=== PATIENT | male | born 1940 | race Caucasian/White ===

== ENCOUNTER 2016-12-17 14:41 | Outpatient (CLI) | payer MEDICARE | END 2016-12-17 14:42 | disposition home or self-care (01) | DX: Z01.818 Encounter for other preprocedural examination (principal); K40.90 Unilateral inguinal hernia, without obstruction or gangrene, not specified as recurrent; R91.8 Other nonspecific abnormal finding of lung field ==

== ENCOUNTER 2016-12-21 07:59 | Day surgery (SDC) | payer MEDICARE ==
[2016-12-21] MEDS ORDERED: LACTATED RINGERS 1,000 ML IV ONE ×5 (09:01→12:25)
[2016-12-21] MEDS ORDERED: DEXAMETHASONE 4 MG/ML VIAL IVP ONE (09:20)
[2016-12-21] MEDS ORDERED: GLYCOPYRROLATE 1 MG/5 ML VIAL IVP ONE (09:20)
[2016-12-21] MEDS ORDERED: ROCURONIUM 50 MG/5 ML VIAL IVP ONE (09:20)
[2016-12-21] MEDS ORDERED: ceFAZolin 1 GM VIAL IV ONE (09:20)
[2016-12-21] MEDS ORDERED: LIDOCAINE-MPF 2% 5 ML VIAL IM ONE (09:20)
[2016-12-21] MEDS ORDERED: ACETAMINOPHEN 1,000 MG/100 ML VIAL IV ONE (09:20)
[2016-12-21] MEDS ORDERED: fentaNYL 100 MCG/2 ML VIAL IVP ONE (09:20)
[2016-12-21] MEDS ORDERED: ONDANSETRON 4 MG/2 ML VIAL IVP ONE (09:20)
[2016-12-21] MEDS ORDERED: MIDAZOLAM 2 MG/2 ML VIAL IVP ONE (09:20)
[2016-12-21] MEDS ORDERED: PROPOFOL 200 MG/20 ML VIAL IVP ONE (09:20)
[2016-12-21] MEDS ORDERED: NEOSTIGMINE 1 MG/1 ML 10 ML MDV IVP ONE (09:20)
[2016-12-21] MEDS ORDERED: SUCCINYLCHOLINE 200 MG/10 ML VIAL IVP ONE (09:20)
[2016-12-21] MEDS ORDERED: BUPIVACAINE 0.5%-EPI 1:200000 PF 30 ML VIAL SUBQ ONE ×2 (09:28→11:00)
--- NOTE | 2016-12-21 11:43 | OPERATIVE REPORT ---
DATE OF SURGERY: 12/21/2016 00:00:00 SURGEON: Tena Esposito MD ANESTHESIA: General. NAME OF PROCEDURE: Left inguinal hernia repair with mesh. PREOPERATIVE DIAGNOSIS: Incarcerated left inguinal hernia. POSTOPERATIVE DIAGNOSIS: Incarcerated left inguinal hernia. FINDINGS: After obtaining informed consent from the patient, he was brought into the operating room and positioned on the operating table in the supine position, taking note of pressure points. He was intubated by Anesthesia. He was then prepped and draped in the usual sterile fashion. Perioperative antibiotics were administered, SCD boots were applied. A time-out was then taken according to protocol. An incision was made in the inguinal crease approximately 4 cm in length. This was deepened down to subcutaneous tissue. Ana Rosa fascia was divided. The external oblique aponeurosis was encountered. This was opened along the length of fibers using a #15 blade, followed by Metzenbaum scissors towards the external ring. The external ring was opened and the oblique fibers were then opened towards the ASIS exposing the inguinal floor. The ilioinguinal nerve was identified and was protected by dissecting it out of the cord structures. The cord structures were then palpated and dissected off of the underlying pelvic floor structures encircling the cord structures with a Dodie at the level of the pubic bone. Dissection in the cord structures was performed. The cord structures were from the inguinal floor. The hernia sac was identified in the indirect space. It was difficult to dissect the hernia sac off of the cord structures as these were very adherent. The sac eventually was opened and its contents inspected. There was noted to be a loop of what appeared to be small bowel and mesentery stuck to the inner aspect of the hernia sac. The hernia sac was eventually dissected off of the cord structures and reduced back into the abdominal cavity. A large size Prolene mesh was then selected and inserted into the internal ring. This was sutured into place to the transversalis muscles as well as to the inguinal ligament with a #2 Prolene suture. A Prolene mesh was then utilized to close the floor defect. This was sutured in place at the pubic tubercle and to the internal oblique fibers medially, as well as to the inguinal ligament laterally. The tails were crossed to accommodate the spermatic cord and the tails were sutured together with #2 Prolene. Hemostasis was noted to be achieved , and the cavity was irrigated. The external oblique fibers were then closed protecting the underlying ilioinguinal nerve with a #2 Prolene suture in a running fashion. Again, the subcutaneous tissue was irrigated and the Ana Rosa fascia was closed with 3-0 Vicryl; 30 mL of local anesthetic was infiltrated. The skin was then closed with 4-0 Monocryl. BLOOD LOSS: 5 mL. COMPLICATIONS: None. JOB #: [id number] [facility] JOB #:[id number] [facility]
[2016-12-21] MEDS ORDERED: oxyCOD/ACETAMIN 5 MG/325 MG TABLET PO ONE (12:20)
[2016-12-21 15:21] VITALS: BP 151/81
== END 2016-12-21 08:00 | disposition home or self-care (01) ==
LOC: SDS 07:59
PROVIDERS: ATTEND Surgery
PROC: 0YU60JZ Supplement Left Inguinal Region with Synthetic Substitute, Open Approach (ICD-10-PCS; principal; 2016-12-21 09:15)
DX: K40.30 Unilateral inguinal hernia, with obstruction, without gangrene, not specified as recurrent (principal); E84.9 Cystic fibrosis, unspecified; J44.9 Chronic obstructive pulmonary disease, unspecified; I10 Essential (primary) hypertension; Z79.82 Long term (current) use of aspirin; Z82.49 Family history of ischemic heart disease and other diseases of the circulatory system; Z83.3 Family history of diabetes mellitus; Z87.891 Personal history of nicotine dependence
CPT/HCPCS: 49507; A9270; C1781; J0131; J7120

== ENCOUNTER 2017-01-15 10:46 | Outpatient (CLI) | payer MEDICARE ==
[2017-01-15 11:07] LABS: BILIRUBIN,URINE NEGATIVE (NEGATIVE)
== END 2017-01-15 10:47 | disposition home or self-care (01) ==
LOC: LAB 10:46
PROVIDERS: ATTEND Surgery
DX: K40.90 Unilateral inguinal hernia, without obstruction or gangrene, not specified as recurrent (principal)
CPT/HCPCS: 81003

== ENCOUNTER 2017-08-21 11:05 | Outpatient (CLI) | payer MEDICARE ==
[2017-08-21 11:34] LABS: BASOPHILS # (AUTO) 0.1 10^3/uL (0.0-0.1); BASOPHILS % (AUTO) 0.6 %; EOSINOPHILS # (AUTO) 0.2 10^3/uL (0.0-0.7); EOSINOPHILS % (AUTO) 2.8 %; HGB - HEMOGLOBIN 14.3 g/dL (14.0-18.0); LYMPHOCYTES # (AUTO) 1.1 10^3/uL (1.5-3.5); MEAN CORPUSCULAR HEMOGLOBIN 33.1 pg (27.0-31.0); MEAN CORPUSCULAR HGB CONC 33.9 g/dL (32.0-36.0); MEAN CORPUSCULAR VOLUME 97.5 fL (80.0-94.0); MEAN PLATELET VOLUME 8.4 fL (7.4-11.4); MONOCYTES # (AUTO) 0.6 10^3/uL (0.0-1.0); MONOCYTES % (AUTO) 6.7 %; NEUTROPHILS # (AUTO) 6.6 10^3/uL (1.5-6.6); NEUTROPHILS % (AUTO) 76.9 %; PLT - PLATELET COUNT 176 10^3/uL (130-450); RED BLOOD COUNT 4.31 10^6/uL (4.70-6.10); RED CELL DISTRIBUTION WIDTH 14.1 % (12.0-15.0); WHITE BLOOD COUNT 8.6 x10^3/uL (4.8-10.8)
[2017-08-21 11:54] LABS: ALBUMIN 4.1 g/dL (3.2-5.5); ALBUMIN/GLOBULIN RATIO 1.4 (1.0-2.2); BILIRUBIN,TOTAL 0.5 mg/dL (0.2-1.0); CALCIUM 9.2 mg/dL (8.5-10.3); CREATININE 0.9 mg/dL (0.6-1.2)
== END 2017-08-21 11:06 | disposition home or self-care (01) ==
LOC: LAB 11:05
PROVIDERS: ATTEND Family Medicine
DX: K11.20 Sialoadenitis, unspecified (principal)
CPT/HCPCS: 36415; 80053; 85025; 86735

== ENCOUNTER 2017-12-01 10:38 | Inpatient (IN) | payer MEDICARE ==
--- NOTE | 2017-12-01 11:03 | ED Physician Documentation ---
History of Present Illness - Stated complaint Stated Complaint: MEMORY LOSS/CONFUSION - Chief complaint Chief Complaint: Neuro - Additonal information Additional information: hx from pt 77 male on eliquis and has a PPM last night approx 1030 PM he noticed he was dizzy and off balance and had trouble focusing his vision to read went to bed and this AM when he awoke the sx were still there and he was also having trouble with his memory no focal numbness or weakness no speech abn no loss of vision or hearing has a PÉREZ to the top of his head which is mild no fall otherwise well recently - no fever cough NVD etc Review of Systems Constitutional: denies: Fever, Chills Cardiac: denies: Chest pain / pressure Respiratory: denies: Dyspnea GI: denies: Abdominal Pain, Nausea, Vomiting Neurologic: reports: Headache, Other (off balance and vision abn and memory loss ). denies: Focal weakness, Numbness, Head injury Endocrine: reports: Easy bruising / bleeding (eliquis) Immunocompromised: denies: Immunocompromised PD PAST MEDICAL HISTORY - Past Medical History Cardiovascular: Hypertension, Arrhythmia Respiratory: None Endocrine/Autoimmune: None GI: GERD, Colon polyps : None HEENT: Chronic vision loss, Dental implants Psych: Depression Musculoskeletal: None Derm: None - Past Surgical History General: EGD, Appendectomy, Colonoscopy /VICE PRESIDENT PLANNING: Tubal ligation, Hysterectomy, Oophrectomy Cardiovascular: Cardiac catheterization, Other HEENT: Tonsil/Adenoidectomy - Present Medications Home Medications: Ambulatory Orders Medication Instructions Recorded Confirmed Aspirin 81 mg PO DAILY 01/10/13 12/01/17 Tamsulosin HCl [Flomax] 0.4 mg PO DAILY 12/01/17 12/01/17 - Allergies Allergies/Adverse Reactions: Allergies Allergy/AdvReac Type Severity Reaction Status Date / Time lisinopril AdvReac Cough Verified 12/01/17 17:17 losartan potassium * AdvReac Bradycardia Verified 12/01/17 17:17 [From Jose Albertoar] PD ED PE NORMAL - Vitals Vital signs reviewed: Yes - General General: Alert and oriented X 3 - HEENT HEENT: PERRL, EOMI, Other (nl visual salazar) - Neck Neck: Supple, no meningeal sign - Cardiac Cardiac: RRR - Respiratory Respiratory: Clear bilaterally - Abdomen Abdomen: Soft, Non tender - Derm Derm: Normal color - Neuro Neuro: Alert and oriented X 3, 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, No motor deficit, No sensory deficit, Normal speech, Other (NIHSS zero) Eye Opening: Spontaneous Motor: Obeys Commands Verbal: Oriented GCS Score: 15 Results - Vitals Vitals: Vital Signs - 24 hr 12/01/17 12/01/17 12/01/17 10:41 12:56 14:59 Temperature 36.1 C L Heart Rate 78 66 63 Respiratory 19 18 13 Rate Blood Pressure 182/89 H 128/81 H 150/95 H O2 Saturation 97 95 96 12/01/17 16:20 Temperature Heart Rate 64 Respiratory 22 Rate Blood Pressure 121/75 O2 Saturation 95 Oxygen O2 Source Room air - EKG (time done) 1118 Other comments: Other comments (paced at 60) - Labs Labs: Laboratory Tests 12/01/17 12/01/17 12/01/17 10:48 10:48 10:48 WBC 6.2 RBC 4.33 L Hgb 14.6 Hct 43.0 MCV 99.3 H MCH 33.7 H MCHC 33.9 RDW 14.1 Plt Count 178 MPV 8.6 Neut # 3.8 Lymph # 1.4 L Bureau # 0.8 Eos # 0.2 Baso # 0.0 Absolute Nucleated RBC 0.00 Nucleated RBC % 0.0 PT 13.7 H INR 1.2 APTT 33.7 H Sodium 137 Potassium 3.9 Chloride 104 Carbon Dioxide 27 Anion Gap 6.0 BUN 15 Creatinine 1.0 Estimated GFR (MDRD) 73 L Glucose 117 H POC Whole Bld Glucose Calcium 9.0 Urine Color Urine Clarity Urine pH Ur Specific Cranks Urine Protein Urine Glucose (UA) Urine Ketones Urine Occult Blood Urine Nitrite Urine Bilirubin Urine Urobilinogen Ur Leukocyte Esterase Ur Microscopic Review Urine Culture Comments 12/01/17 12/01/17 11:19 12:11 WBC RBC Hgb Hct MCV MCH MCHC RDW Plt Count MPV Neut # Lymph # Bureau # Eos # Baso # Absolute Nucleated RBC Nucleated RBC % PT INR APTT Sodium Potassium Chloride Carbon Dioxide Anion Gap BUN Creatinine Estimated GFR (MDRD) Glucose POC Whole Bld Glucose 154 H Calcium Urine Color YELLOW Urine Clarity CLEAR Urine pH 6.5 Ur Specific Cranks <=1.005 Urine Protein NEGATIVE Urine Glucose (UA) NEGATIVE Urine Ketones NEGATIVE Urine Occult Blood NEGATIVE Urine Nitrite NEGATIVE Urine Bilirubin NEGATIVE Urine Urobilinogen 0.2 (NORMAL) Ur Leukocyte Esterase NEGATIVE Ur Microscopic Review NOT INDICATED Urine Culture Comments NOT INDICATED - Rads (name of study) CTH Radiology: See rad report (no acute) CTA brain Radiology: See rad report (verbal from tele rad : multiple areas of high grade stenosis L MEAT TE[employer] LEAD c.w atherosclerotic dz or vasculiti, no single occlusion, no iscmeia ot brain tissue appreciated on non con scan) CTA neck Radiology: See rad report (large thyroid mass on R displacing but not compressing the trachea (pt told and advised to fup PMD for sono and perhaps biopsy and surgical referral), mild atherosclerosis R and L carotids, dominant R vertebral mild atherosclerosis, congenitally small L vertebral) PD MEDICAL DECISION MAKING - ED course ED course: sx since yesterday and on eliquis so not a TPA candidate CTH neg for acute process nl labs cannot have MRI 2/2 PPM will d/w neuro plan to admit for echo CTA serial neuro exams etc d/w neuro Dr Brito who suggests CTA in ED to determine if there is a thrombus amenable to IR got angios and then d/w Dr Brito again - she advises that the MEAT TEAM LEAD findings are not amenable to intervention via IR etc so tx will be medical - she rec hold eliquis for 2 days because if pt has a large area of ischemia he could develop bleeding, echo, serial neuro exams, rpt CTH tomorrow evening - her number for further rec is d/w Dr Miles who admit pt - inpt as needed CT tomorrow evening per neuro rec presumptive dx is CVA but will need rpt imaging to confirm - Departure - Departure Disposition: 66 [facility] DC/Xfer Clinical Impression: Abnormal CT scan, Dizziness, Vision disturbance, Confusion Cerebrovascular accident (CVA) Qualifiers: CVA mechanism: stenosis Precerebral and cerebral artery: other cerebral artery Qualified Code(s): I63.59 - Cerebral infarction due to unspecified occlusion or stenosis of other cerebral artery Condition: Good Discharge Date/Time: 12/01/17 18:11
[2017-12-01 11:14] LABS: BASOPHILS % (AUTO) 0.6 %; EOSINOPHILS # (AUTO) 0.2 10^3/uL (0.0-0.7); EOSINOPHILS % (AUTO) 3.1 %; HGB - HEMOGLOBIN 14.6 g/dL (14.0-18.0); LYMPHOCYTES # (AUTO) 1.4 10^3/uL (1.5-3.5); LYMPHOCYTES % (AUTO) 23.3 %; MEAN CORPUSCULAR HEMOGLOBIN 33.7 pg (27.0-31.0); MEAN CORPUSCULAR HGB CONC 33.9 g/dL (32.0-36.0); MEAN CORPUSCULAR VOLUME 99.3 fL (80.0-94.0); MEAN PLATELET VOLUME 8.6 fL (7.4-11.4); MONOCYTES # (AUTO) 0.8 10^3/uL (0.0-1.0); MONOCYTES % (AUTO) 12.2 %; NEUTROPHILS # (AUTO) 3.8 10^3/uL (1.5-6.6); NEUTROPHILS % (AUTO) 60.8 %; PLT - PLATELET COUNT 178 10^3/uL (130-450); RED BLOOD COUNT 4.33 10^6/uL (4.70-6.10); RED CELL DISTRIBUTION WIDTH 14.1 % (12.0-15.0); WHITE BLOOD COUNT 6.2 x10^3/uL (4.8-10.8)
[2017-12-01 11:16] LABS: INR 1.2 (0.8-1.2); PT - PROTHROMBIN TIME 13.7 secs (9.9-12.6)
--- NOTE | 2017-12-01 11:20 | CT Preliminary Report ---
Exam: CT HEAD W/O STROKE PROTOCOL IMPRESSION: No acute cranial abnormality. Findings discussed immediately with Dr. Navarro by phone on 12/01/2017 11:18 AM [facility] SITE ID: [id number]
--- NOTE | 2017-12-01 11:20 | CT Report ---
EXAM: CT HEAD EXAM DATE: 12/01/2017 11:11 AM. CLINICAL HISTORY: Stroke sx, dizziness, vision changes, memory. COMPARISON: None. TECHNIQUE: Multiaxial CT images were obtained from the foramen magnum to the vertex. Reformats: Coron al. IV contrast: None. In accordance with CT protocol optimization, one or more of the following dose reduction techniques w ere utilized for this exam: automated exposure control, adjustment of mA and/or KV based on patient s ize, or use of iterative reconstructive technique. FINDINGS: Parenchyma: No intraparenchymal hemorrhage. No evidence of mass, midline shift, or CT findings of inf arction. Lewis-white differentiation is distinct. Extraaxial Spaces: Normal for age. No subdural or epidural collections identified. Ventricles: Normal in size and position. Sinuses and Orbits: Imaged paranasal sinuses, orbits, and mastoids show no significant abnormality. Bones: No evidence of fracture or calvarial defect. Other: None. IMPRESSION: No acute cranial abnormality. Findings discussed immediately with Dr. Navarro by phone on 12/01/2017 11:18 AM [facility] Referring Provider Line: [phone] SITE ID: [id number]
[2017-12-01 12:21] LABS: BILIRUBIN,URINE NEGATIVE (NEGATIVE); GLUCOSE, URINE (UA) NEGATIVE (NEGATIVE); KETONES,URINE (UA) NEGATIVE (NEGATIVE); LEUKOCYTE ESTERASE, URINE NEGATIVE (NEGATIVE); NITRITE,URINE NEGATIVE (NEGATIVE); OCCULT BLOOD,URINE NEGATIVE (NEGATIVE); PH,URINE 6.5 PH (5.0-7.5); PROTEIN,URINE NEGATIVE (NEGATIVE); UROBILINOGEN,URINE 0.2 (NORMAL) E.U./dL (NORMAL)
[2017-12-01 12:23] LABS: CLARITY,URINE CLEAR (CLEAR)
[2017-12-01] MEDS ORDERED: IOPAMIDOL-300 100 ML VIAL ONE (14:11)
[2017-12-01] MEDS ORDERED: IOPAMIDOL-300 100 ML VIAL IVP ONE ×2 (14:51→14:52)
--- NOTE | 2017-12-01 15:45 | CT Report ---
EXAM: CT ANGIOGRAM HEAD. CT SCAN OF THE HEAD WITHOUT AND WITH CONTRAST. EXAM DATE: 12/01/2017 02:54 PM CLINICAL HISTORY: Concern for cerebrovascular accident, dizziness, vision changes, memory COMPARISON: Noncontrast CT head 12/01/2017 TECHNIQUE: - CT Scan Head: Using a multidetector scanner, axial images were acquired from the foramen magnum to the skull vertex prior to and following contrast administration. - CT Angiogram: Using a multidetector scanner, high-resolution axial images were acquired from the sk ull base through vertex following rapid infusion of intravenous contrast. Reformats: Multiplanar MIP reformats were reconstructed. Nascet criteria used for stenosis measurement. IV Contrast: 80 cc Isovue-300. In accordance with CT protocol optimization, one or more of the following dose reduction techniques w ere utilized for this exam: automated exposure control, adjustment of mA and/or KV based on patient s ize, or use of iterative reconstructive technique. FINDINGS: NON-CONTRAST HEAD: Parenchyma: No intraparenchymal hemorrhage. No evidence of mass, midline shift, or CT findings of inf arction. Lewis-white differentiation is distinct. Extraaxial Spaces: Normal for age. No subdural or epidural collections identified. Ventricles: Normal in size and position. Sinuses and orbits: Imaged paranasal sinuses, orbits, and mastoids show no significant abnormality. Bones: No evidence of fracture or calvarial defect. Other: None. POST-CONTRAST HEAD: No abnormal enhancement. CT ANGIOGRAM HEAD: Mild atherosclerosis right carotid siphon, no hemodynamically significant stenosis. Mild atherosclero sis left carotid siphon, no hemodynamically significant stenosis. Moderate atherosclerosis V4 segment right vertebral artery, maximal stenosis 20-30%. The basilar arteries unremarkable. The visualized i ntracranial left vertebral artery is unremarkable. The right MCA is unremarkable. The ACAs bilaterall y are unremarkable. The left MCA is unremarkable. The posterior communicating arteries are not clearl y visualized on either side, likely hypoplastic or aplastic. The right posterior cerebral artery is u nremarkable. Multifocal high-grade, likely greater than 80% stenoses in P2, P3 segments of the left P CA. DURAL VENOUS SINUSES AND MAJOR CENTRAL VEINS: Patent. IMPRESSION: 1. No CT evidence of acute intracranial abnormality, specifically no CT evidence of acute infarct, in tracranial hemorrhage, mass effect, midline shift, or hydrocephalus. 2. No abnormal enhancement on the postcontrast CT head. 3. Multifocal high-grade, likely greater than 80% stenoses in P2, P3 segments of the left ONLINE SERVICES MANAGER. The di fferential considerations include vasculitis, extensive atherosclerosis, less likely multifocal parti al thrombotic occlusions. 4. Mild atherosclerosis right carotid siphon, no hemodynamically significant stenosis. Mild atheroscl erosis left carotid siphon, no hemodynamically significant stenosis. 5. Moderate atherosclerosis V4 segment right vertebral artery, maximal stenosis 20-30%. 6. CTA of the neck is dictated separately. CRITICAL RESULT: The findings were discussed with Dr. Navarro on 12/01/2017 15:42 [facility] The above findings were discussed with ED Physician by Dr. Shira Savage at 15:44 hrs on 12/01/17. Referring Provider Line: [phone] SITE ID: [id number]
--- NOTE | 2017-12-01 16:13 | CT Report ---
EXAM: CT ANGIOGRAM NECK EXAM DATE: 12/01/2017 02:54 PM. CLINICAL HISTORY: CVA sx cannot MRI 2/2 PPM. COMPARISON: None. TECHNIQUE: Routine axial helical imaging was performed from the skull base through the aortic arch. R econstructions: Routine multiplanar 3D MIP reconstructions. IV Contrast: Yes. 80 cc Isovue 300 Evalua tion of arterial stenosis is based on a NASCET method of measurement. In accordance with CT protocol optimization, one or more of the following dose reduction techniques w ere utilized for this exam: automated exposure control, adjustment of mA and/or KV based on patient s ize, or use of iterative reconstructive technique. FINDINGS: Right Carotid: The large right thyroid lobe mass displaces the right common carotid artery to the rig ht, however with no significant narrowing (for example series 2 image 215). Mild atherosclerosis righ t carotid bifurcation and right carotid bulb, no hemodynamically significant stenosis. The distal cer vical right internal carotid artery is tortuous but patent. The common carotid, internal carotid, and external carotid arteries are widely patent. No evidence of dissection. Left Carotid: Common origin of the right brachiocephalic artery and left common carotid artery (bovin e arch) Mild atherosclerosis left carotid bifurcation and left carotid bulb, no hemodynamically signi ficant stenosis. Tortuosity of the distal cervical left internal carotid artery, no hemodynamically s ignificant stenosis. The common carotid, internal carotid, and external carotid arteries are widely p atent. No evidence of dissection. Vertebrals: The right vertebral artery is dominant. Mild atherosclerosis right vertebral artery origi n, maximal stenosis 30-40%. The left vertebral artery is small throughout its entire course, likely c ongenital, with origin directly from the aorta. The intracranial portions of the vertebral arteries a nd the basilar artery are dictated with the CTA of the head. Intracranial Circulation: Concurrently obtained CTA of the head is dictated separately. Other: The visualized lung apices demonstrate mild centrilobular and paraseptal emphysema but are oth erwise unremarkable. Moderate multilevel degenerative spondylosis of the visualized spine, no acute f racture or malalignment. Markedly enlarged right thyroid lobe with a large hypodense lesion with a ce ntral calcification, measuring 4.8 x 4.1 cm in maximal transverse dimensions (series 2 image 193). Th is large right thyroid lesion exerts mass effect on the trachea which is shifted to the left, however without significant luminal narrowing. The visualized soft tissues of the neck are otherwise unremar kable. IMPRESSION: 1. Concurrently obtained CTA of the head is dictated separately. 2. The large right thyroid lobe mass displaces the right common carotid artery to the right, however with no significant narrowing (for example series 2 image 215). 3. Mild atherosclerosis right carotid bifurcation and right carotid bulb, no hemodynamically signific ant stenosis. The distal cervical right internal carotid artery is tortuous but patent. 4. Common origin of the right brachiocephalic artery and left common carotid artery (bovine arch) 5. Mild atherosclerosis left carotid bifurcation and left carotid bulb, no hemodynamically significan t stenosis. Tortuosity of the distal cervical left internal carotid artery, no hemodynamically signif icant stenosis. 6. The right vertebral artery is dominant. Mild atherosclerosis right vertebral artery origin, armen l stenosis 30-40%. 7. The left vertebral artery is small throughout its entire course, likely congenital, with origin di rectly from the aorta. 8. Mild centrilobular and paraseptal emphysema 9. Markedly enlarged right thyroid lobe with a large hypodense lesion with a central calcification, m easuring 4.8 x 4.1 cm in maximal transverse dimensions (series 2 image 193). This large right thyroid lesion exerts mass effect on the trachea which is shifted to the left, however without significant l uminal narrowing. CT appearance is nonspecific. Recommend follow-up evaluation with thyroid ultrasoun d, which may be done non-emergently. [facility] Referring Provider Line: [phone] SITE ID: [id number]
[2017-12-01] MEDS ORDERED: ACETAMINOPHEN 325 MG TABLET PO PRN (17:17)
[2017-12-01] MEDS ORDERED: SODIUM CHLORIDE FLUSH 0.9% 10 ML SYRINGE IVP PRN (17:17)
[2017-12-01] MEDS ORDERED: ONDANSETRON 4 MG/2 ML VIAL IVP PRN (17:17)
[2017-12-01] MEDS ORDERED: PROCHLORPERAZINE 10 MG/2 ML VIAL IVP PRN (17:17)
[2017-12-01] MEDS ORDERED: oxyCODONE 5 MG TABLET PO PRN (17:17)
[2017-12-01] MEDS ORDERED: PROMETHAZINE 25 MG/1 ML VIAL IM PRN (17:17)
--- NOTE | 2017-12-01 18:46 | HISTORY & PHYSICAL EXAMINATION ---
Chief Complaint - Chief Complaint Chief Complaint: Memory problems History of Present Illness - Admitted From Admitted From:: Emergency department - History Obtained From Records Reviewed: Yes History obtained from: Patient Exam Limitations: At times patient was slow to answer questions - History of Present Illness HPI Comment/Other: Patient is a 77-year-old gentleman with a past medical history significant for atrial flutter status post 2 ablations just 1 month ago at [facility] currently on Eliquis for just 1 more day, history of hypertension no longer on medications and history of sick sinus syndrome status post pacemaker who presented to the emergency department with a chief complaint of memory problems. The patient states that he was in his normal state of health until last night about half an hour before he went to bed. He states that he went to get his pajamas when he noticed he was having difficulties with his balance. He states that he had to hang onto the brink to get to his pajamas and had a lot of difficulty putting on his pajamas. He states when he finally got back to the bed and sat down he began playing with his iPad. He states that when he looked at his iPad he could not clearly see the right side of the screen. He states that the right side of the skin drain was blurry. He states that he tried to move the eye pad and different positions and the right side remained blurry. He states that he thought if he just went to sleep he could sleep off the symptoms so he went to bed. He states that when he woke up this morning he noticed he was having difficulty remembering things. He states that specifically he was having difficulty remembering numbers. He states that he could not remember dates and could not remember his own phone number. He states that this concerned him as it was not getting better as the day progressed. He finally decided to come into the emergency department. He also states that he was having a headache throughout the day. Patient denies any fevers, chills, nasal congestion, sore throat, difficulty swallowing, chest pain, shortness of air, orthopnea, cough, PND, increased lower extremity swelling, abdominal pain, nausea, vomiting, diarrhea, constipation, urinary urgency, urinary frequency, dysuria, joint pain, muscle aches, joint swelling, back pain, neck stiffness, skin changes, hair loss, recent unintentional weight loss, changes in his appetite, facial droop or any focal neurologic deficits. On presentation to the emergency department the patient was afebrile, hypertensive with blood pressure of 182/89 and otherwise vital signs are within normal limits. The patient underwent routine lab work which revealed a normal CBC, normal electrolytes and a negative urine analysis. The patient underwent a CT of his head which showed no acute cranial abnormality. The patient then underwent a CT angiogram of his head and neck which showed no evidence of acute intracranial abnormality specifically acute infarct or intracranial hemorrhage or mass-effect or midline shift or hydrocephalus there was a finding however of multifocal high-grade, likely greater than 80% stenosis in P2, P3 segments of the left MINE PATROL. The differential consideration included vasculitis, extensive atherosclerosis and less likely multifocal partial thrombotic occlusions. Given these findings the emergency room physician Dr. Cota called [facility] neurology Dr. Myla Brito. Dr. Brito stated that there was no acute intervention that could be done at this time given that the posterior arteries could not be treated by intervention. She did advise that the patient be admitted to the hospital and monitored with neuro checks. She also advised that the Eliquis be held and the patient go undergo a repeat CT head tomorrow evening to rule out any bleeding. Given the concern for likely posterior stroke the patient was admitted to the medical rodr[facility] for the above treatment plan. History - Past Medical History Cardiovascular: reports: Hypertension, Atrial flutter (Status post 2 ablations) , Arrhythmia (Sick sinus syndrome status post pacemaker) Respiratory: reports: None Endocrine/Autoimmune: reports: None GI: reports: GERD, Colon polyps : reports: Benign prostate hypertrophy HEENT: reports: Chronic vision loss, Dental implants Psych: reports: Depression Musculoskeletal: reports: None Derm: reports: None MRSA Hx?: No - Past Surgical History General: reports: EGD, Appendectomy, Colonoscopy /AUDIT CLERKS SUPERVISOR: reports: Tubal ligation, Hysterectomy, Oophrectomy Cardiovascular: reports: Cardiac catheterization, Other HEENT: reports: Tonsil/Adenoidectomy - Family & Social History Family History: Mother: (Father had a blood clotting disorder), CAD, Cancer (Sister has AML), Father: , Sister: Cancer Living arrangement: At home Living Situation: With spouse/s.o. 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 The patient was born in [place], [place]. He lived in [place] for many years while he worked. He moved to [place] after he retired about 8 years ago. He now lives on [facility] [facility]. He lives with his who is currently away in [facility] taking care of her mother. He has been to his for 38 years and they have no children. The patient is a former smoker used to smoke 2 packs a day for nearly 30 years but quit 20 years ago. The patient does drink 3 glasses of wine a week. He denies any illicit drug use. - POLST Patient has POLST: No POLST Status: Full Code Meds/Allgy - Home Medications Home Medications: Ambulatory Orders Medication Instructions Recorded Confirmed Aspirin 81 mg PO DAILY 01/10/13 12/01/17 Tamsulosin HCl [Flomax] 0.4 mg PO DAILY 12/01/17 12/01/17 - Allergies Allergies/Adverse Reactions: Allergies Allergy/AdvReac Type Severity Reaction Status Date / Time lisinopril AdvReac Cough Verified 12/01/17 17:17 losartan potassium * AdvReac Bradycardia Verified 12/01/17 17:17 [From [facility]] Review of Systems - Other Findings Other Findings: A comprehensive review of systems was performed the pertinent positives and negatives are stated above in the HPI and the remainder of the review of systems is negative. Exam - Vital Signs Reviewed Vital Signs: Yes Vital Signs: Vital Signs x48h Temp Pulse Resp BP Pulse Ox 12/01/17 18:29 36.7 C 62 16 152/77 H 98 - Physical Exam General Appearance: positive: No acute distress, Alert, Other (Follows commands appropriately,Slow to express answers especially when it comes to numbers) Eyes Bilateral: positive: Normal inspection, PERRL, EOMI, No lid inflammation, Conjunctivae nml, No scleral icterus ENT: positive: ENT inspection nml, Pharynx nml, No signs of dehydration. negative: Purulent nasal drainage, Pharyngeal erythema, Oral lesions Neck: positive: Nml inspection, Thyroid nml, No JVD, Trachea midline. negative : Thyromegaly, Lymphadenopathy (R), Lymphadenopathy (L), Kernig's sign, Carotid bruit, Tracheal deviation Respiratory: positive: Chest non-tender, No respiratory distress, Breath sounds nml. negative: Wheezes, Rales, Rhonchi Cardiovascular: positive: Regular rate & rhythm, No murmur, No gallop Peripheral Pulses: positive: 2+ Abdomen: positive: Non-tender, No organomegaly, Nml bowel sounds, No distention. negative: Guarding, Rebound, Hepatomegaly Back: positive: Nml inspection. negative: CVA tenderness (R), CVA tenderness (L ) Skin: positive: Color nml, No rash, Warm. negative: Cyanosis, Diaphoresis, Pallor Extremities: positive: Non-tender, Full ROM, Nml appearance, No pedal edema Neurologic/Psychiatric: positive: CN's nml (2-12), Motor nml, Sensation nml, Mood/affect nml, Disoriented to time, Other (Patient has no focal weakness but did not know the year, month or date. Normally the patient is highly intelligent.) Conclusion/Plan - Problem List (1) Cerebrovascular accident (CVA) Conclusion/Plan: The patient presented with on specific symptoms of ataxia, blurred vision and memory deficits. These occurred over the last 12-16 hours prior to presentation. The patient was having difficulty remembering numbers specifically dates and telephone numbers. The patient had no other focal neurologic deficits or weakness. The patient's CT head was negative. Patient's CT angiogram of head and neck did reveal multifocal high-grade, likely greater than 80% stenosis in P2, P3 segments of the left MINE PATROL. These were concerning for possible vasculitis, extensive atherosclerosis or less likely multifocal thrombotic occlusions. Given the patient's symptomology appears likely the patient was having posterior stroke. Emergency room physician spoke with the neurologist collection agent from [facility] Dr. Myla Brito who advised that the patient be admitted to the hospital for neuro checks, echocardiogram and repeat CT in 24 hours to ensure he does not have any bleeding given that he is on Eliquis. She also advised to stop Eliquis. MRI could not be performed on this patient secondary to him having a pacemaker. Plan: Aspirin Lipitor Echo Lipid profile [facility] Repeat CT tomorrow evening Hold Eliquis Qualifiers: CVA mechanism: stenosis Precerebral and cerebral artery: other cerebral artery Qualified Code(s): I63.59 - Cerebral infarction due to unspecified occlusion or stenosis of other cerebral artery (2) Atrial flutter Conclusion/Plan: Patient has history of atrial flutter and is status post 2 ablations in the last month. The patient currently has a pacemaker and on EKG does not appear to be in atrial flutter. The patient was on Eliquis his last day of Eliquis is tomorrow. Given this stroke and advice from neuro at [facility] we will stop the patient's Eliquis and start him on aspirin. Qualifiers: Atrial flutter type: unspecified Qualified Code(s): I48.92 - Unspecified atrial flutter (3) Hypertension Conclusion/Plan: Patient has history of hypertension blood pressure was elevated in the emergency department. We will allow for permissive hypertension. The patient is no longer on any antihypertensive medications. Monitor blood pressure Qualifiers: Hypertension type: essential hypertension Qualified Code(s): I10 - Essential (primary) hypertension (4) Thyroid lesion Conclusion/Plan: Patient has markedly enlarged right thyroid lobe with a large hypodense lesion with a central calcification, measuring 4.8 x 4.1 cm in maximal transverse dimensions. This large right thyroid lesion exerts mass-effect on the trachea which is shifted to the left, however without significant luminal narrowing. A thyroid ultrasound was recommended for follow-up evaluation. Plan: Thyroid ultrasound Thyroid studies - Lab Results Lab results reviewed: Yes Fish Bones: 12/01/17 10:48 12/01/17 10:48 Other Lab Results: Laboratory Results WBC 6.2 x10^3/uL (4.8-10.8) 12/01/17 10:48 RBC 4.33 10^6/uL (4.70-6.10) L 12/01/17 10:48 Hgb 14.6 g/dL (14.0-18.0) 12/01/17 10:48 Hct 43.0 % (42.0-52.0) 12/01/17 10:48 MCV 99.3 fL (80.0-94.0) H 12/01/17 10:48 MCH 33.7 pg (27.0-31.0) H 12/01/17 10:48 MCHC 33.9 g/dL (32.0-36.0) 12/01/17 10:48 RDW 14.1 % (12.0-15.0) 12/01/17 10:48 Plt Count 178 10^3/uL (130-450) 12/01/17 10:48 MPV 8.6 fL (7.4-11.4) 12/01/17 10:48 Neut # 3.8 10^3/uL (1.5-6.6) 12/01/17 10:48 Lymph # 1.4 10^3/uL (1.5-3.5) L 12/01/17 10:48 Forest # 0.8 10^3/uL (0.0-1.0) 12/01/17 10:48 Eos # 0.2 10^3/uL (0.0-0.7) 12/01/17 10:48 Baso # 0.0 10^3/uL (0.0-0.1) 12/01/17 10:48 Absolute Nucleated RBC 0.00 x10^3/uL 12/01/17 10:48 Nucleated RBC % 0.0 /100WBC 12/01/17 10:48 PT 13.7 secs (9.9-12.6) H 12/01/17 10:48 INR 1.2 (0.8-1.2) 12/01/17 10:48 APTT 33.7 secs (24.9-33.3) H 12/01/17 10:48 Sodium 137 mmol/L (135-145) 12/01/17 10:48 Potassium 3.9 mmol/L (3.5-5.0) 12/01/17 10:48 Chloride 104 mmol/L (101-111) 12/01/17 10:48 Carbon Dioxide 27 mmol/L (21-32) 12/01/17 10:48 Anion Gap 6.0 (6-13) 12/01/17 10:48 BUN 15 mg/dL (6-20) 12/01/17 10:48 Creatinine 1.0 mg/dL (0.6-1.2) 12/01/17 10:48 Estimated GFR (MDRD) 73 (>89) L 12/01/17 10:48 Glucose 117 mg/dL (70-100) H 12/01/17 10:48 POC Whole Bld Glucose 154 mg/dL (70 - 100) H 12/01/17 11:19 Calcium 9.0 mg/dL (8.5-10.3) 12/01/17 10:48 Urine Color YELLOW 12/01/17 12:11 Urine Clarity CLEAR (CLEAR) 12/01/17 12:11 Urine pH 6.5 PH (5.0-7.5) 12/01/17 12:11 Ur Specific [place] <=1.005 (1.002-1.030) 12/01/17 12:11 Urine Protein NEGATIVE mg/dL (NEGATIVE) 12/01/17 12:11 Urine Glucose (UA) NEGATIVE mg/dL (NEGATIVE) 12/01/17 12:11 Urine Ketones NEGATIVE mg/dL (NEGATIVE) 12/01/17 12:11 Urine Occult Blood NEGATIVE (NEGATIVE) 12/01/17 12:11 Urine Nitrite NEGATIVE (NEGATIVE) 12/01/17 12:11 Urine Bilirubin NEGATIVE (NEGATIVE) 12/01/17 12:11 Urine Urobilinogen 0.2 (NORMAL) E.U./dL (NORMAL) 12/01/17 12:11 Ur Leukocyte Esterase NEGATIVE (NEGATIVE) 12/01/17 12:11 Ur Microscopic Review NOT INDICATED 12/01/17 12:11 Urine Culture Comments NOT INDICATED 12/01/17 12:11 - Diagnostic Imaging Results Diagnostic Imaging Results: positive: Final report reviewed Diagnostic Imaging Results Comments: EXAM: [id number] CT/HEADSP ([id number]) EXAM: CT HEAD EXAM DATE: 12/01/2017 11:11 AM. CLINICAL HISTORY: Stroke sx, dizziness, vision changes, memory. COMPARISON: None. TECHNIQUE: Multiaxial CT images were obtained from the foramen magnum to the vertex. Reformats: Coronal. IV contrast: None. In accordance with CT protocol optimization, one or more of the following dose reduction techniques were utilized for this exam: automated exposure control, adjustment of mA and/or KV based on patient size, or use of iterative reconstructive technique. FINDINGS: Parenchyma: No intraparenchymal hemorrhage. No evidence of mass, midline shift, or CT findings of infarction. Lewis-white differentiation is distinct. Extraaxial Spaces: Normal for age. No subdural or epidural collections identified. Ventricles: Normal in size and position. Sinuses and Orbits: Imaged paranasal sinuses, orbits, and mastoids show no significant abnormality. Bones: No evidence of fracture or calvarial defect. Other: None. IMPRESSION: No acute cranial abnormality. EXAM: [id number] CT/NECKANG ([id number]) EXAM: CT ANGIOGRAM NECK EXAM DATE: 12/01/2017 02:54 PM. CLINICAL HISTORY: CVA sx cannot MRI 2/2 PPM. COMPARISON: None. TECHNIQUE: Routine axial helical imaging was performed from the skull base through the aortic arch. Reconstructions: Routine multiplanar 3D MIP reconstructions. IV Contrast: Yes. 80 cc Isovue 300 Evaluation of arterial stenosis is based on a NASCET method of measurement. In accordance with CT protocol optimization, one or more of the following dose reduction techniques were utilized for this exam: automated exposure control, adjustment of mA and/or KV based on patient size, or use of iterative reconstructive technique. FINDINGS: Right Carotid: The large right thyroid lobe mass displaces the right common carotid artery to the right, however with no significant narrowing (for example series 2 image 215). Mild atherosclerosis right carotid bifurcation and right carotid bulb, no hemodynamically significant stenosis. The distal cervical right internal carotid artery is tortuous but patent. The common carotid, internal carotid, and external carotid arteries are widely patent. No evidence of dissection. Left Carotid: Common origin of the right brachiocephalic artery and left common carotid artery ( bovine arch) Mild atherosclerosis left carotid bifurcation and left carotid bulb , no hemodynamically significant stenosis. Tortuosity of the distal cervical left internal carotid artery , no hemodynamically significant stenosis. The common carotid, internal carotid , and external carotid arteries are widely patent. No evidence of dissection. Vertebrals: The right vertebral artery is dominant. Mild atherosclerosis right vertebral artery origin, maximal stenosis 30-40%. The left vertebral artery is small throughout its entire course, likely congenital, with origin directly from the aorta. The intracranial portions of the vertebral arteries and the basilar artery are dictated with the CTA of the head. Intracranial Circulation: Concurrently obtained CTA of the head is dictated separately. Other: The visualized lung apices demonstrate mild centrilobular and paraseptal emphysema but are otherwise unremarkable. Moderate multilevel degenerative spondylosis of the visualized spine, no acute fracture or malalignment. Markedly enlarged right thyroid lobe with a large hypodense lesion with a central calcification, measuring 4.8 x 4.1 cm in maximal transverse dimensions (series 2 image 193). This large right thyroid lesion exerts mass effect on the trachea which is shifted to the left, however without significant luminal narrowing. The visualized soft tissues of the neck are otherwise unremarkable. IMPRESSION: 1. Concurrently obtained CTA of the head is dictated separately. 2. The large right thyroid lobe mass displaces the right common carotid artery to the right, however with no significant narrowing (for example series 2 image 215). 3. Mild atherosclerosis right carotid bifurcation and right carotid bulb, no hemodynamically significant stenosis. The distal cervical right internal carotid artery is tortuous but patent. 4. Common origin of the right brachiocephalic artery and left common carotid artery (bovine arch) 5. Mild atherosclerosis left carotid bifurcation and left carotid bulb, no hemodynamically significant stenosis. Tortuosity of the distal cervical left internal carotid artery, no hemodynamically significant stenosis. 6. The right vertebral artery is dominant. Mild atherosclerosis right vertebral artery origin, maximal stenosis 30-40%. 7. The left vertebral artery is small throughout its entire course, likely congenital, with origin directly from the aorta. 8. Mild centrilobular and paraseptal emphysema 9. Markedly enlarged right thyroid lobe with a large hypodense lesion with a central calcification , measuring 4.8 x 4.1 cm in maximal transverse dimensions (series 2 image 193). This large right thyroid lesion exerts mass effect on the trachea which is shifted to the left, however without significant luminal narrowing. CT appearance is nonspecific. Recommend follow- up evaluation with thyroid ultrasound, which may be done non-emergently. EXAM: [id number] CT/HEADANG ([id number]) EXAM: CT ANGIOGRAM HEAD. CT SCAN OF THE HEAD WITHOUT AND WITH CONTRAST. EXAM DATE: 12/01/2017 02:54 PM CLINICAL HISTORY: Concern for cerebrovascular accident, dizziness, vision changes, memory COMPARISON: Noncontrast CT head 12/01/2017 TECHNIQUE: - CT Scan Head: Using a multidetector scanner, axial images were acquired from the foramen magnum to the skull vertex prior to and following contrast administration. - CT Angiogram: Using a multidetector scanner, high-resolution axial images were acquired from the skull base through vertex following rapid infusion of intravenous contrast. Reformats: Multiplanar MIP reformats were reconstructed. Nascet criteria used for stenosis measurement. IV Contrast: 80 cc Isovue-300. In accordance with CT protocol optimization, one or more of the following dose reduction techniques were utilized for this exam: automated exposure control, adjustment of mA and/or KV based on patient size, or use of iterative reconstructive technique. FINDINGS: NON-CONTRAST HEAD: Parenchyma: No intraparenchymal hemorrhage. No evidence of mass, midline shift, or CT findings of infarction. Lewis-white differentiation is distinct. Extraaxial Spaces: Normal for age. No subdural or epidural collections identified. Ventricles: Normal in size and position. Sinuses and orbits: Imaged paranasal sinuses, orbits, and mastoids show no significant abnormality. Bones: No evidence of fracture or calvarial defect. Other: None. POST-CONTRAST HEAD: No abnormal enhancement. CT ANGIOGRAM HEAD: Mild atherosclerosis right carotid siphon, no hemodynamically significant stenosis. Mild atherosclerosis left carotid siphon, no hemodynamically significant stenosis. Moderate atherosclerosis V4 segment right vertebral artery, maximal stenosis 20-30%. The basilar arteries unremarkable. The visualized intracranial left vertebral artery is unremarkable. The right MCA is unremarkable. The ACAs bilaterally are unremarkable. The left MCA is unremarkable. The posterior communicating arteries are not clearly visualized on either side, likely hypoplastic or aplastic. The right posterior cerebral artery is unremarkable. Multifocal high-grade, likely greater than 80% stenoses in P2, P3 segments of the left MINE PATROL. DURAL VENOUS SINUSES AND MAJOR CENTRAL VEINS: Patent. IMPRESSION: 1. No CT evidence of acute intracranial abnormality, specifically no CT evidence of acute infarct, intracranial hemorrhage, mass effect, midline shift, or hydrocephalus. 2. No abnormal enhancement on the postcontrast CT head. 3. Multifocal high-grade, likely greater than 80% stenoses in P2, P3 segments of the left MINE PATROL. The differential considerations include vasculitis, extensive atherosclerosis, less likely multifocal partial thrombotic occlusions. 4. Mild atherosclerosis right carotid siphon, no hemodynamically significant stenosis. Mild atherosclerosis left carotid siphon, no hemodynamically significant stenosis. 5. Moderate atherosclerosis V4 segment right vertebral artery, maximal stenosis 20-30%. 6. CTA of the neck is dictated separately. - EKG Results EKG Interpreted Independently: Yes Core Measures - Anticipated LOS I expect patient to be DC'd or transferred within 96 hours.: Yes - DVT/VTE - Prophylaxis VTE/DVT Device ordered at admit?: Yes
[2017-12-01] MEDS: SODIUM CHLORIDE 0.9% 1,000 ML IV SCH (19:18)
[2017-12-01] MEDS ORDERED: ATORVASTATIN 40 MG TABLET PO SCH (21:00)
--- NOTE | 2017-12-02 00:16 | Ultrasound Report ---
EXAM: THYROID ULTRASOUND EXAM DATE: 12/01/2017 11:08 PM. CLINICAL HISTORY: Right lobe of thyroid enlarged. COMPARISON: None. TECHNIQUE: Real time sonographic imaging of the thyroid was performed by the drilling fluids specialist. Multiple re presentative static images were saved for review. FINDINGS: THYROID GLAND: Right Lobe: 6.1 x 3.6 x 4.4 cm, volume 49.2 cc. Diffusely heterogeneous. Right Lobe Nodules: Large lobulated solid heterogeneous, but isoechoic mass measuring about 5.2 x 3.6 x 5.0 cm with a calcification measuring 1.1 x 1.0 x 0.9 cm. Left Lobe: 4.4 x 1.7 x 1.4 cm, volume 5.4 cc. Normal background echotexture. Left Lobe Nodules: Small cyst measuring 0.3 x 0.2 cm. Isthmus: 0.4 cm AP. Isthmic Nodules: None. LYMPH NODES: No adenopathy demonstrated in the central or lateral compartment. OTHER: None. IMPRESSION: Large right thyroid mass; fine-needle aspiration is recommended. Management recommendations are based on 2015 [place] [employer] Management Guidelines for A dult Patients with Thyroid Nodules and Differentiated Thyroid Cancer. [facility] Referring Provider Line: [phone] SITE ID: [id number]
[2017-12-02] MEDS: SODIUM CHLORIDE FLUSH 0.9% 10 ML SYRINGE IVP SCH ×2 (02:26→07:59)
[2017-12-02] MEDS: SODIUM CHLORIDE 0.9% 1,000 ML IV SCH (04:27)
[2017-12-02 05:31] LABS: BASOPHILS % (AUTO) 0.8 %; EOSINOPHILS # (AUTO) 0.3 10^3/uL (0.0-0.7); EOSINOPHILS % (AUTO) 4.5 %; HGB - HEMOGLOBIN 13.1 g/dL (14.0-18.0); LYMPHOCYTES # (AUTO) 1.5 10^3/uL (1.5-3.5); LYMPHOCYTES % (AUTO) 27.1 %; MEAN CORPUSCULAR HEMOGLOBIN 32.8 pg (27.0-31.0); MEAN CORPUSCULAR HGB CONC 33.4 g/dL (32.0-36.0); MEAN CORPUSCULAR VOLUME 98.4 fL (80.0-94.0); MEAN PLATELET VOLUME 8.5 fL (7.4-11.4); MONOCYTES # (AUTO) 0.6 10^3/uL (0.0-1.0); MONOCYTES % (AUTO) 10.3 %; NEUTROPHILS # (AUTO) 3.3 10^3/uL (1.5-6.6); NEUTROPHILS % (AUTO) 57.3 %; PLT - PLATELET COUNT 162 10^3/uL (130-450); RED BLOOD COUNT 3.98 10^6/uL (4.70-6.10); WHITE BLOOD COUNT 5.7 x10^3/uL (4.8-10.8)
[2017-12-02 05:43] LABS: ALBUMIN 3.6 g/dL (3.2-5.5); ALBUMIN/GLOBULIN RATIO 1.4 (1.0-2.2); BILIRUBIN,TOTAL 0.8 mg/dL (0.2-1.0); CALCIUM 8.3 mg/dL (8.5-10.3); CREATININE 0.8 mg/dL (0.6-1.2); TOTAL PROTEIN 6.1 g/dL (6.7-8.2)
[2017-12-02 05:47] LABS: CHOL/HDL RATIO 2.8 (<5.0); CHOLESTEROL 176 mg/dL; HDL CHOLESTEROL 64 mg/dL; LDL CHOLESTEROL,CALCULATED 99 mg/dL; LDL/HDL RATIO 1.5 (<3.6); VLDL CHOLESTEROL 13 mg/dL
[2017-12-02] MEDS ORDERED: ASPIRIN CHEW 81 MG TABLET PO SCH (09:00)
[2017-12-02] MEDS ORDERED: FAMOTIDINE 20 MG TABLET PO SCH (09:00)
[2017-12-02] MEDS ORDERED: TAMSULOSIN 0.4 MG CAPSULE PO SCH (09:00)
[2017-12-02] MEDS ORDERED: POLYETHYLENE GLYCOL 3350 17 GM PACKET PO SCH (09:00)
--- NOTE | 2017-12-02 16:02 | CT Report ---
CT BRAIN WITHOUT CONTRAST: 12/02/2017 CLINICAL INDICATION: Stroke, 24-hour followup to evaluate for hemorrhage. COMPARISON: 12/01/2017. TECHNIQUE: Axial CT images of the brain were obtained without intravenous contrast. FINDINGS: The ventricles and sulci are normal in size, shape and configuration. The basilar cisterns are patent. There is no evidence of hemorrhage, mass effect, or midline shift. The visualized orbital contents and paranasal sinuses are unremarkable. IMPRESSION: NORMAL HEAD CT. NO SIGNIFICANT INTERVAL CHANGE. CT DOSE REDUCTION STATEMENT In accordance with CT protocol optimization, one or more of the following dose reduction techniques were utilized for this exam: automated exposure control, adjustment of mA and/or KV based on patient size, or use of iterative reconstructive technique. TD: 12/02/2017 16:02
--- NOTE | 2017-12-02 16:54 | Discharge Plan ---
Discharge Plan Disposition: 01 Home, Self Care Condition: Good Prescriptions: Atorvastatin [Lipitor] 40 mg PO QPM #30 tablet Diet: Regular Activity Restrictions: Activity as Tolerated Shower Restrictions: No Driving Restrictions: No Weight Bearing: Full Weight Additional Instructions or Follow Up instructions: You presented to the emergency department with memory deficits, unsteady gait and blurred vision. 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 It appears that you had a mild stroke but your symptoms appear to be resolving. You were on Eliquis prior to hospitalization and we recommend that you stop the Eliquis for now. We do recommend that you take aspirin daily as prescribed and start a cholesterol pill called Lipitor which you should also take daily. 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 Please follow-up with your primary care physician as soon as you can to get this biopsy done. No Smoking: If you smoke, Please STOP! Call for help. Follow-up with: Jacob Huffman MD [Primary Care Provider] -
--- NOTE | 2017-12-02 16:59 | DISCHARGE SUMMARY ---
Discharge Summary Admit Date: 12/02/17 Discharge Date: 12/03/17 Discharging Provider: Wilfredo Miles MD Primary Care Provider: Job Huffman MD Code Status: Attempt Resuscitation Condition at Discharge: Good Discharge Disposition: 01 Home, Self Care - DIAGNOSES Admission Diagnoses: 1. Cerebral infarction due to unspecified occlusion or stenosis of other cerebral artery 2. Unspecified atrial flutter 3. Essential hypertension 4. Thyroid lesion Discharge Diagnoses with Status of Each Condition: 1. I63.59 - Cerebral infarction due to unspecified occlusion or stenosis of other cerebral artery : Improving 2. Thyroid mass: Guarded 3. Systolic heart failure: Stable 4. Atrial flutter, unspecified: Stable 5. Essential hypertension: Stable - HPI History of Present Illness: Patient is a 77-year-old gentleman with a past medical history significant for atrial flutter status post 2 ablations just 1 month ago at [facility] [place] currently on Eliquis for just 1 more day, history of hypertension no longer on medications and history of sick sinus syndrome status post pacemaker who presented to the emergency department with a chief complaint of memory problems. The patient states that he was in his normal state of health until last night about half an hour before he went to bed. He states that he went to get his pajamas when he noticed he was having difficulties with his balance. He states that he had to hang onto the brink to get to his pajamas and had a lot of difficulty putting on his pajamas. He states when he finally got back to the bed and sat down he began playing with his iPad. He states that when he looked at his iPad he could not clearly see the right side of the screen. He states that the right side of the skin drain was blurry. He states that he tried to move the eye pad and different positions and the right side remained blurry. He states that he thought if he just went to sleep he could sleep off the symptoms so he went to bed. He states that when he woke up this morning he noticed he was having difficulty remembering things. He states that specifically he was having difficulty remembering numbers. He states that he could not remember dates and could not remember his own phone number. He states that this concerned him as it was not getting better as the day progressed. He finally decided to come into the emergency department. He also states that he was having a headache throughout the day. Patient denies any fevers, chills, nasal congestion, sore throat, difficulty swallowing, chest pain, shortness of air, orthopnea, cough, PND, increased lower extremity swelling, abdominal pain, nausea, vomiting, diarrhea, constipation, urinary urgency, urinary frequency, dysuria, joint pain, muscle aches, joint swelling, back pain, neck stiffness, skin changes, hair loss, recent unintentional weight loss, changes in his appetite, facial droop or any focal neurologic deficits. On presentation to the emergency department the patient was afebrile, hypertensive with blood pressure of 182/89 and otherwise vital signs are within normal limits. The patient underwent routine lab work which revealed a normal CBC, normal electrolytes and a negative urine analysis. The patient underwent a CT of his head which showed no acute cranial abnormality. The patient then underwent a CT angiogram of his head and neck which showed no evidence of acute intracranial abnormality specifically acute infarct or intracranial hemorrhage or mass-effect or midline shift or hydrocephalus there was a finding however of multifocal high-grade, likely greater than 80% stenosis in P2, P3 segments of the left PATCH PRESS OPERATOR. The differential consideration included vasculitis, extensive atherosclerosis and less likely multifocal partial thrombotic occlusions. Given these findings the emergency room physician Dr. Cota called [facility] [place] neurology Dr. Myla Brito. Dr. Brito stated that there was no acute intervention that could be done at this time given that the posterior arteries could not be treated by intervention. She did advise that the patient be admitted to the hospital and monitored with neuro checks. She also advised that the Eliquis be held and the patient go undergo a repeat CT head tomorrow evening to rule out any bleeding. Given the concern for likely posterior stroke the patient was admitted to the medical [facility] for the above treatment plan. - HOSPITAL COURSE Hospital Course: (1) Cerebrovascular accident (CVA) Conclusion/Plan: The patient presented with on specific symptoms of ataxia, blurred vision and memory deficits. These occurred over the last 12-16 hours prior to presentation. The patient was having difficulty remembering numbers specifically dates and telephone numbers. The patient had no other focal neurologic deficits or weakness. The patient's CT head was negative. Patient's CT angiogram of head and neck did reveal multifocal high-grade, likely greater than 80% stenosis in P2, P3 segments of the left PATCH PRESS OPERATOR. These were concerning for possible vasculitis, extensive atherosclerosis or less likely multifocal thrombotic occlusions. Given the patient's symptomology appears likely the patient was having posterior stroke. Emergency room physician spoke with the neurologist air conditioning equipment mechanic from [facility] [place] Dr. Myla Brito who advised that the patient be admitted to the hospital for neuro checks, echocardiogram and repeat CT in 24 hours to ensure he does not have any bleeding given that he is on Eliquis. She also advised to stop Eliquis. MRI could not be performed on this patient secondary to him having a pacemaker. The patient was admitted to the hospital and monitored with neuro checks, telemetry monitoring over night. The patient's symptoms seem to improve during the hospitalization as he states that his memory became more clear and he had no further symptoms of ataxia or blurred vision. The patient underwent a repeat CT scan of the head which was unchanged from the previous CT scan with no evidence of any bleeding. The patient was instructed to stop taking his Eliquis and start using a baby aspirin and Lipitor daily. The patient was given a prescription for Lipitor. The patient was not evaluated by physical therapy as he had no weakness and his ataxia had resolved. Qualifiers: CVA mechanism: stenosis Precerebral and cerebral artery: other cerebral artery Qualified Code(s): I63.59 - Cerebral infarction due to unspecified occlusion or stenosis of other cerebral artery (2) Thyroid lesion Conclusion/Plan: Patient has markedly enlarged right thyroid lobe with a large hypodense lesion with a central calcification, measuring 4.8 x 4.1 cm in maximal transverse dimensions. This large right thyroid lesion exerts mass-effect on the trachea which is shifted to the left, however without significant luminal narrowing. A thyroid ultrasound was recommended for follow-up evaluation. During the hospitalization the patient underwent lab work which revealed a normal TSH and T3 The patient also underwent a ultrasound of his thyroid which showed a large right thyroid mass. A fine-needle aspiration was recommended by the radiologist. Patient was informed about this mass and was instructed to see his primary care physician as soon as possible to set up a fine-needle aspiration and biopsy. Patient will follow up with his primary care physician. (3) Systolic Heart Failure Conclusion/Plan: Patient underwent an echocardiogram for workup of his stroke and was found to have an overall left ventricular systolic function that is moderately impaired at 35-40%. Patient was started on metoprolol 25 mg daily and Cozaar 50 mg daily at the time of discharge. Patient will follow up with his primary care physician and electronic instrument trades worker in regards to this new diagnosis. (4) Atrial flutter Conclusion/Plan: Patient has history of atrial flutter and is status post 2 ablations in the last month. The patient currently has a pacemaker and on EKG does not appear to be in atrial flutter. The patient was on Eliquis his last day of Eliquis is tomorrow. Given this stroke and advice from neuro at [facility] we stopped the patient's Eliquis and started him on aspirin. Qualifiers: Atrial flutter type: unspecified Qualified Code(s): I48.92 - Unspecified atrial flutter (5) Hypertension Conclusion/Plan: Patient has history of hypertension blood pressure was elevated in the emergency department. We will allow for permissive hypertension while the patient was hospitalized. Patient was discharged home on metoprolol and Cozaar for congestive heart failure which will also help with his hypertension. Qualifiers: Hypertension type: essential hypertension Qualified Code(s): I10 - Essential (primary) hypertension - ALLERGIES Allergies/Adverse Reactions: Allergies Allergy/AdvReac Type Severity Reaction Status Date / Time lisinopril AdvReac Cough Verified 12/01/17 17:17 losartan potassium * AdvReac Bradycardia Verified 12/01/17 17:17 [From Cozaar] - MEDICATIONS Home Medications: Ambulatory Orders Medication Instructions Recorded Confirmed Aspirin 81 mg PO DAILY 01/10/13 12/01/17 Tamsulosin HCl [Flomax] 0.4 mg PO DAILY 12/01/17 12/01/17 Atorvastatin [Lipitor] 40 mg PO QPM #30 tablet 12/02/17 Losartan [Cozaar] 50 mg PO DAILY #30 tablet 12/02/17 Metoprolol Succinate 25 mg PO DAILY #30 tab.er.24h 12/02/17 - PHYSICAL EXAM AT DISCHARGE General Appearance: positive: No acute distress, Alert Eyes Bilateral: positive: Normal inspection, PERRL, EOMI, No lid inflammation, Conjunctivae nml, No scleral icterus ENT: positive: ENT inspection nml, Pharynx nml, No signs of dehydration. negative: Purulent nasal drainage, Pharyngeal erythema, Oral lesions Neck: positive: Nml inspection, Thyroid nml, No JVD, Trachea midline. negative : Thyromegaly, Lymphadenopathy (R), Lymphadenopathy (L) Respiratory: positive: Chest non-tender, No respiratory distress, Breath sounds nml. negative: Wheezes, Rales, Rhonchi Cardiovascular: positive: Regular rate & rhythm, No murmur, No gallop Peripheral Pulses: positive: 2+ Abdomen: positive: Non-tender, No organomegaly, Nml bowel sounds, No distention. negative: Guarding, Rebound, Hepatomegaly Back: positive: Nml inspection. negative: CVA tenderness (R), CVA tenderness (L ) Skin: positive: Color nml, No rash, Warm Extremities: positive: Non-tender, Full ROM, Nml appearance, No pedal edema Neurologic/Psychiatric: positive: Oriented x3, CN's nml (2-12), Motor nml, Sensation nml - LABS Result Diagrams: 12/02/17 05:08 12/02/17 05:08 Other Lab Results: Laboratory Results WBC 5.7 x10^3/uL (4.8-10.8) 12/02/17 05:08 RBC 3.98 10^6/uL (4.70-6.10) L 12/02/17 05:08 Hgb 13.1 g/dL (14.0-18.0) L 12/02/17 05:08 Hct 39.1 % (42.0-52.0) L 12/02/17 05:08 MCV 98.4 fL (80.0-94.0) H 12/02/17 05:08 MCH 32.8 pg (27.0-31.0) H 12/02/17 05:08 MCHC 33.4 g/dL (32.0-36.0) 12/02/17 05:08 RDW 14.0 % (12.0-15.0) 12/02/17 05:08 Plt Count 162 10^3/uL (130-450) 12/02/17 05:08 MPV 8.5 fL (7.4-11.4) 12/02/17 05:08 Neut # 3.3 10^3/uL (1.5-6.6) 12/02/17 05:08 Lymph # 1.5 10^3/uL (1.5-3.5) 12/02/17 05:08 [place] # 0.6 10^3/uL (0.0-1.0) 12/02/17 05:08 Eos # 0.3 10^3/uL (0.0-0.7) 12/02/17 05:08 Baso # 0.0 10^3/uL (0.0-0.1) 12/02/17 05:08 Absolute Nucleated RBC 0.00 x10^3/uL 12/02/17 05:08 Nucleated RBC % 0.0 /100WBC 12/02/17 05:08 PT 13.7 secs (9.9-12.6) H 12/01/17 10:48 INR 1.2 (0.8-1.2) 12/01/17 10:48 APTT 33.7 secs (24.9-33.3) H 12/01/17 10:48 Sodium 137 mmol/L (135-145) 12/02/17 05:08 Potassium 3.8 mmol/L (3.5-5.0) 12/02/17 05:08 Chloride 107 mmol/L (101-111) 12/02/17 05:08 Carbon Dioxide 24 mmol/L (21-32) 12/02/17 05:08 Anion Gap 6.0 (6-13) 12/02/17 05:08 BUN 13 mg/dL (6-20) 12/02/17 05:08 Creatinine 0.8 mg/dL (0.6-1.2) 12/02/17 05:08 Estimated GFR (MDRD) 94 (>89) 12/02/17 05:08 Glucose 84 mg/dL (70-100) 12/02/17 05:08 POC Whole Bld Glucose 154 mg/dL (70 - 100) H 12/01/17 11:19 Calcium 8.3 mg/dL (8.5-10.3) L 12/02/17 05:08 Total Bilirubin 0.8 mg/dL (0.2-1.0) 12/02/17 05:08 AST 26 IU/L (10-42) 12/02/17 05:08 ALT 20 IU/L (10-60) 12/02/17 05:08 Alkaline Phosphatase 45 IU/L (42-121) 12/02/17 05:08 Total Protein 6.1 g/dL (6.7-8.2) L 12/02/17 05:08 Albumin 3.6 g/dL (3.2-5.5) 12/02/17 05:08 Globulin 2.5 g/dL (2.1-4.2) 12/02/17 05:08 Albumin/Globulin Ratio 1.4 (1.0-2.2) 12/02/17 05:08 Triglycerides 65 mg/dL (-149) 12/02/17 05:08 Cholesterol 176 mg/dL (-199) 12/02/17 05:08 LDL Cholesterol, Calc 99 mg/dL (-129) 12/02/17 05:08 VLDL Cholesterol 13 mg/dL 12/02/17 05:08 HDL Cholesterol 64 mg/dL (60-) 12/02/17 05:08 LDL/HDL Ratio 1.5 (<3.6) 12/02/17 05:08 Cholesterol/HDL Ratio 2.8 (<5.0) 12/02/17 05:08 TSH 2.58 uIU/mL (0.34-5.60) 12/02/17 05:08 Free T3 pg/mL 2.68 pg/mL (2.5-3.9) 12/02/17 05:08 Total T3 0.96 ng/mL (0.87-1.78) 12/02/17 05:08 Urine Color YELLOW 12/01/17 12:11 Urine Clarity CLEAR (CLEAR) 12/01/17 12:11 Urine pH 6.5 PH (5.0-7.5) 12/01/17 12:11 Ur Specific [place] <=1.005 (1.002-1.030) 12/01/17 12:11 Urine Protein NEGATIVE mg/dL (NEGATIVE) 12/01/17 12:11 Urine Glucose (UA) NEGATIVE mg/dL (NEGATIVE) 12/01/17 12:11 Urine Ketones NEGATIVE mg/dL (NEGATIVE) 12/01/17 12:11 Urine Occult Blood NEGATIVE (NEGATIVE) 12/01/17 12:11 Urine Nitrite NEGATIVE (NEGATIVE) 12/01/17 12:11 Urine Bilirubin NEGATIVE (NEGATIVE) 12/01/17 12:11 Urine Urobilinogen 0.2 (NORMAL) E.U./dL (NORMAL) 12/01/17 12:11 Ur Leukocyte Esterase NEGATIVE (NEGATIVE) 12/01/17 12:11 Ur Microscopic Review NOT INDICATED 12/01/17 12:11 Urine Culture Comments NOT INDICATED 12/01/17 12:11 - DIAGNOSTIC IMAGING Diagnostic Imaging Results: Final report reviewed Diagnostic Imaging Results Comments: EXAM: [id number] CT/HEADSP ([id number]) EXAM: CT HEAD EXAM DATE: 12/01/2017 11:11 AM. CLINICAL HISTORY: Stroke sx, dizziness, vision changes, memory. COMPARISON: None. TECHNIQUE: Multiaxial CT images were obtained from the foramen magnum to the vertex. Reformats: Coronal. IV contrast: None. In accordance with CT protocol optimization, one or more of the following dose reduction techniques were utilized for this exam: automated exposure control, adjustment of mA and/or KV based on patient size, or use of iterative reconstructive technique. FINDINGS: Parenchyma: No intraparenchymal hemorrhage. No evidence of mass, midline shift, or CT findings of infarction. Lewis-white differentiation is distinct. Extraaxial Spaces: Normal for age. No subdural or epidural collections identified. Ventricles: Normal in size and position. Sinuses and Orbits: Imaged paranasal sinuses, orbits, and mastoids show no significant abnormality. Bones: No evidence of fracture or calvarial defect. Other: None. IMPRESSION: No acute cranial abnormality. EXAM: [id number] CT/NECKANG ([id number]) EXAM: CT ANGIOGRAM NECK EXAM DATE: 12/01/2017 02:54 PM. CLINICAL HISTORY: CVA sx cannot MRI 2/2 PPM. COMPARISON: None. TECHNIQUE: Routine axial helical imaging was performed from the skull base through the aortic arch. Reconstructions: Routine multiplanar 3D MIP reconstructions. IV Contrast: Yes. 80 cc Isovue 300 Evaluation of arterial stenosis is based on a NASCET method of measurement. In accordance with CT protocol optimization, one or more of the following dose reduction techniques were utilized for this exam: automated exposure control, adjustment of mA and/or KV based on patient size, or use of iterative reconstructive technique. FINDINGS: Right Carotid: The large right thyroid lobe mass displaces the right common carotid artery to the right, however with no significant narrowing (for example series 2 image 215). Mild atherosclerosis right carotid bifurcation and right carotid bulb, no hemodynamically significant stenosis. The distal cervical right internal carotid artery is tortuous but patent. The common carotid, internal carotid, and external carotid arteries are widely patent. No evidence of dissection. Left Carotid: Common origin of the right brachiocephalic artery and left common carotid artery ( bovine arch) Mild atherosclerosis left carotid bifurcation and left carotid bulb , no hemodynamically significant stenosis. Tortuosity of the distal cervical left internal carotid artery , no hemodynamically significant stenosis. The common carotid, internal carotid , and external carotid arteries are widely patent. No evidence of dissection. Vertebrals: The right vertebral artery is dominant. Mild atherosclerosis right vertebral artery origin, maximal stenosis 30-40%. The left vertebral artery is small throughout its entire course, likely congenital, with origin directly from the aorta. The intracranial portions of the vertebral arteries and the basilar artery are dictated with the CTA of the head. Intracranial Circulation: Concurrently obtained CTA of the head is dictated separately. Other: The visualized lung apices demonstrate mild centrilobular and paraseptal emphysema but are otherwise unremarkable. Moderate multilevel degenerative spondylosis of the visualized spine, no acute fracture or malalignment. Markedly enlarged right thyroid lobe with a large hypodense lesion with a central calcification, measuring 4.8 x 4.1 cm in maximal transverse dimensions (series 2 image 193). This large right thyroid lesion exerts mass effect on the trachea which is shifted to the left, however without significant luminal narrowing. The visualized soft tissues of the neck are otherwise unremarkable. IMPRESSION: 1. Concurrently obtained CTA of the head is dictated separately. 2. The large right thyroid lobe mass displaces the right common carotid artery to the right, however with no significant narrowing (for example series 2 image 215). 3. Mild atherosclerosis right carotid bifurcation and right carotid bulb, no hemodynamically significant stenosis. The distal cervical right internal carotid artery is tortuous but patent. 4. Common origin of the right brachiocephalic artery and left common carotid artery (bovine arch) 5. Mild atherosclerosis left carotid bifurcation and left carotid bulb, no hemodynamically significant stenosis. Tortuosity of the distal cervical left internal carotid artery, no hemodynamically significant stenosis. 6. The right vertebral artery is dominant. Mild atherosclerosis right vertebral artery origin, maximal stenosis 30-40%. 7. The left vertebral artery is small throughout its entire course, likely congenital, with origin directly from the aorta. 8. Mild centrilobular and paraseptal emphysema 9. Markedly enlarged right thyroid lobe with a large hypodense lesion with a central calcification , measuring 4.8 x 4.1 cm in maximal transverse dimensions (series 2 image 193). This large right thyroid lesion exerts mass effect on the trachea which is shifted to the left, however without significant luminal narrowing. CT appearance is nonspecific. Recommend follow- up evaluation with thyroid ultrasound, which may be done non-emergently. EXAM: [id number] CT/HEADANG ([id number]) EXAM: CT ANGIOGRAM HEAD. CT SCAN OF THE HEAD WITHOUT AND WITH CONTRAST. EXAM DATE: 12/01/2017 02:54 PM CLINICAL HISTORY: Concern for cerebrovascular accident, dizziness, vision changes, memory COMPARISON: Noncontrast CT head 12/01/2017 TECHNIQUE: - CT Scan Head: Using a multidetector scanner, axial images were acquired from the foramen magnum to the skull vertex prior to and following contrast administration. - CT Angiogram: Using a multidetector scanner, high-resolution axial images were acquired from the skull base through vertex following rapid infusion of intravenous contrast. Reformats: Multiplanar MIP reformats were reconstructed. Nascet criteria used for stenosis measurement. IV Contrast: 80 cc Isovue-300. In accordance with CT protocol optimization, one or more of the following dose reduction techniques were utilized for this exam: automated exposure control, adjustment of mA and/or KV based on patient size, or use of iterative reconstructive technique. FINDINGS: NON-CONTRAST HEAD: Parenchyma: No intraparenchymal hemorrhage. No evidence of mass, midline shift, or CT findings of infarction. Lewis-white differentiation is distinct. Extraaxial Spaces: Normal for age. No subdural or epidural collections identified. Ventricles: Normal in size and position. Sinuses and orbits: Imaged paranasal sinuses, orbits, and mastoids show no significant abnormality. Bones: No evidence of fracture or calvarial defect. Other: None. POST-CONTRAST HEAD: No abnormal enhancement. CT ANGIOGRAM HEAD: Mild atherosclerosis right carotid siphon, no hemodynamically significant stenosis. Mild atherosclerosis left carotid siphon, no hemodynamically significant stenosis. Moderate atherosclerosis V4 segment right vertebral artery, maximal stenosis 20-30%. The basilar arteries unremarkable. The visualized intracranial left vertebral artery is unremarkable. The right MCA is unremarkable. The ACAs bilaterally are unremarkable. The left MCA is unremarkable. The posterior communicating arteries are not clearly visualized on either side, likely hypoplastic or aplastic. The right posterior cerebral artery is unremarkable. Multifocal high-grade, likely greater than 80% stenoses in P2, P3 segments of the left PATCH PRESS OPERATOR. DURAL VENOUS SINUSES AND MAJOR CENTRAL VEINS: Patent. IMPRESSION: 1. No CT evidence of acute intracranial abnormality, specifically no CT evidence of acute infarct, intracranial hemorrhage, mass effect, midline shift, or hydrocephalus. 2. No abnormal enhancement on the postcontrast CT head. 3. Multifocal high-grade, likely greater than 80% stenoses in P2, P3 segments of the left PATCH PRESS OPERATOR. The differential considerations include vasculitis, extensive atherosclerosis, less likely multifocal partial thrombotic occlusions. 4. Mild atherosclerosis right carotid siphon, no hemodynamically significant stenosis. Mild atherosclerosis left carotid siphon, no hemodynamically significant stenosis. 5. Moderate atherosclerosis V4 segment right vertebral artery, maximal stenosis 20-30%. 6. CTA of the neck is dictated separately. Thyroid ultrasound Impression: Large right thyroid mass; fine-needle aspiration is recommended. CT head 12/02/2017 Impression: Normal head CT. No significant interval change. Echocardiogram Conclusions: 1. Mild left ventricular enlargement. 2. Overall left ventricular systolic function is moderately impaired with an ejection fraction of 35-40% 3. Severe increase in left atrial volume index. 4. Mildly abnormal right heart pressures. 5. Contrast injection of agitated saline was negative for atrial shunt. 6. The aortic root and ascending aorta are dilated measuring up to 4.2 cm. - FOLLOW UP Follow Up: Patient will follow up with his primary care physician for a fine-needle aspiration of a right thyroid mass. The patient was also found to have systolic heart failure with an ejection fraction of 35-40% during echocardiogram. The patient was started on metoprolol and Cozaar and will need to follow-up with his primary care physician and electronic instrument trades worker for further treatment and interventions. The patient was started on aspirin and Lipitor for stroke prevention as he appears to have had a mild stroke and has severe stenosis of segments of left posterior cerebral artery. - TIME SPENT Time Spent in Discharge (Minutes): 45
[2017-12-02 17:18] VITALS: BP 156/90
== END 2017-12-02 17:37 | disposition home or self-care (01) | DRG 65 ==
LOC: ED 10:38 → MS2 17:17
PROVIDERS: ADMIT Internal Medicine; ATTEND Internal Medicine
DX: R42 Dizziness and giddiness (principal); I63.532 Cerebral infarction due to unspecified occlusion or stenosis of left posterior cerebral artery; R41.0 Disorientation, unspecified; I65.8 Occlusion and stenosis of other precerebral arteries; I50.20 Unspecified systolic (congestive) heart failure; I49.9 Cardiac arrhythmia, unspecified; I48.92 Unspecified atrial flutter; I11.0 Hypertensive heart disease with heart failure; E07.9 Disorder of thyroid, unspecified; I49.5 Sick sinus syndrome; N40.0 Benign prostatic hyperplasia without lower urinary tract symptoms; R26.0 Ataxic gait; H53.8 Other visual disturbances; R41.3 Other amnesia; Z87.891 Personal history of nicotine dependence; Z95.0 Presence of cardiac pacemaker; Z79.01 Long term (current) use of anticoagulants; Z79.82 Long term (current) use of aspirin
CPT/HCPCS: 36415; 70450; 70496; 70498; 76536; 80048; 80053; 80061; 81001; 81003; 83721; 84443; 84480; 84481; 85025; 85610; 85730; 87086; 93005; 93306; 99284; 99285

== ENCOUNTER 2017-12-24 16:15 | Outpatient (CLI) | payer MEDICARE | END 2017-12-24 16:16 | disposition home or self-care (01) | LOC: LAB.R 16:15 | PROVIDERS: ATTEND Family Medicine | DX: R31.0 Gross hematuria (principal) | CPT/HCPCS: 87086 ==

== ENCOUNTER 2017-12-24 16:30 | Outpatient (CLI) | payer MEDICARE ==
[2017-12-24 19:27] LABS: PSA FREE 0.897 ng/mL (0.16-2.81)
[2017-12-24 19:28] LABS: PSA TOTAL 2.278 ng/mL (0.000-2.000)
== END 2017-12-24 16:31 ==
LOC: LAB.WCP 16:30
PROVIDERS: ATTEND Family Medicine
DX: R97.20 Elevated prostate specific antigen [PSA] (principal); R31.0 Gross hematuria
CPT/HCPCS: 36415; 84154; 87086

== ENCOUNTER 2017-12-31 11:14 | Outpatient (CLI) | payer MEDICARE ==
[2017-12-31] MEDS ORDERED: IOPAMIDOL-300 100 ML VIAL ONE (11:50)
[2017-12-31] MEDS ORDERED: IOPAMIDOL-300 100 ML VIAL IVP ONE (12:37)
--- NOTE | 2017-12-31 16:35 | CT Report ---
CT IVP: 12/31/2017 CLINICAL INDICATION: Hematuria. TECHNIQUE: Axial CT images of the abdomen and pelvis were obtained prior to and following 100 mL Isovue 300 intravenously, using split bolus technique. No previous CT is available. FINDINGS: Limited evaluation of the lung bases is unremarkable. ABDOMEN: On the unenhanced images, there are tiny bilateral renal calculi, measuring 1-2 mm. No hydronephrosis or hydroureter is seen. The kidneys demonstrate symmetric uptake and excretion of contrast. A cortical cyst is seen in the upper pole of the left kidney. No solid renal mass or collecting system lesion is appreciated. The liver, spleen, pancreas and adrenal glands are unremarkable. The gallbladder is not dilated. No bowel dilatation, free gas, or free fluid is present. No abdominal adenopathy is seen. Pelvis: The distal ureters and urinary bladder appear unremarkable. No pelvic adenopathy or free fluid is present. Sigmoid diverticulosis is seen without CT evidence of diverticulitis. Osseous structures demonstrate degenerative changes. IMPRESSION: TINY NONOBSTRUCTING BILATERAL RENAL CALCULI. NO SOLID RENAL MASS OR COLLECTING SYSTEM MASS IS IDENTIFIED. CT DOSE REDUCTION STATEMENT In accordance with CT protocol optimization, one or more of the following dose reduction techniques were utilized for this exam: automated exposure control, adjustment of mA and/or KV based on patient size, or use of iterative reconstructive technique. TD: 12/31/2017 13:25
== END 2017-12-31 11:15 | disposition home or self-care (01) ==
LOC: DI 11:14
PROVIDERS: ATTEND Family Medicine
DX: R31.0 Gross hematuria (principal); N20.0 Calculus of kidney
CPT/HCPCS: 74178; Q9967

== ENCOUNTER 2018-01-12 09:23 | Outpatient (CLI) | payer MEDICARE ==
[2018-01-12] MEDS ORDERED: BUFFERED LIDOCAINE 10 ML SYRINGE IU ONE (12:49)
--- NOTE | 2018-01-12 13:33 | Ultrasound Report ---
FINE NEEDLE ASPIRATION RIGHT THYROID NODULE: 01/12/2018 CLINICAL INDICATION: Thyroid nodule. TECHNIQUE/FINDINGS: Following obtaining informed consent, the patient's right neck was prepped and draped in the usual sterile fashion. The skin and soft tissues were anesthetized with lidocaine. Under ultrasound guidance, four 22-gauge fine needle aspirations were performed. Needle washings were submitted to Pathology. The patient tolerated the procedure well. No immediate complications. IMPRESSION: RIGHT THYROID FINE NEEDLE ASPIRATION UNDER ULTRASOUND. PATHOLOGY REPORT PENDING. TD: 01/12/2018 13:12
[2018-01-12 14:06] VITALS: BP 122/60
== END 2018-01-12 09:24 | disposition home or self-care (01) ==
LOC: DI 09:23
PROVIDERS: ATTEND Family Medicine
DX: E04.1 Nontoxic single thyroid nodule (principal)
CPT/HCPCS: 10022; 76942; 88305; 88373

== ENCOUNTER 2019-03-08 08:00 | Outpatient (CLI) | payer MEDICARE ==
[2019-03-08 14:17] LABS: CHOL/HDL RATIO 1.8 (<5.0); CHOLESTEROL 138 mg/dL; HDL CHOLESTEROL 75 mg/dL; LDL CHOLESTEROL,CALCULATED 52 mg/dL; LDL/HDL RATIO 0.7 (<3.6); VLDL CHOLESTEROL 11 mg/dL
[2019-03-09 07:35] LABS: PSA FREE 0.96 ng/mL (0.16-2.81); PSA TOTAL 2.99 ng/mL (0.000-2.000)
== END 2019-03-08 23:59 | disposition home or self-care (01) ==
LOC: LAB.WCP 08:00
PROVIDERS: ATTEND Family Medicine
DX: E78.5 Hyperlipidemia, unspecified (principal); R97.20 Elevated prostate specific antigen [PSA]; E04.1 Nontoxic single thyroid nodule; Z12.5 Encounter for screening for malignant neoplasm of prostate
CPT/HCPCS: 36415; 80061; 84153; 84154; 84443; G0103; 83721

== ENCOUNTER 2021-03-27 09:02 | Outpatient (CLI) | payer MEDICARE ==
[2021-03-27 12:15] LABS: BASOPHILS % (AUTO) 0.6 %; EOSINOPHILS # (AUTO) 0.4 10^3/uL (0.0-0.7); EOSINOPHILS % (AUTO) 5.8 %; HCT - HEMATOCRIT 41.5 % (42.0-52.0); HGB - HEMOGLOBIN 13.7 g/dL (14.0-18.0); LYMPHOCYTES # (AUTO) 1.5 10^3/uL (1.5-3.5); LYMPHOCYTES % (AUTO) 22.8 %; MEAN CORPUSCULAR HEMOGLOBIN 33.9 pg (27.0-31.0); MEAN CORPUSCULAR VOLUME 102.7 fL (80.0-94.0); MEAN PLATELET VOLUME 11.4 fL (7.4-11.4); MONOCYTES # (AUTO) 0.6 10^3/uL (0.0-1.0); MONOCYTES % (AUTO) 9.2 %; NEUTROPHILS % (AUTO) 61.3 %; PLT - PLATELET COUNT 167 10^3/uL (130-450); RED BLOOD COUNT 4.04 10^6/uL (4.70-6.10); RED CELL DISTRIBUTION WIDTH 13.8 % (12.0-15.0); WHITE BLOOD COUNT 6.5 x10^3/uL (4.8-10.8)
[2021-03-27 12:40] LABS: ALBUMIN 4.2 g/dL (3.2-5.5); ALBUMIN/GLOBULIN RATIO 1.4 (1.0-2.2); ALKALINE PHOSPHATASE 56 IU/L (42-121); ALT ALANINE AMINOTRANSFERASE 38 IU/L (10-60); AST ASPARTATE AMINOTRANSFERASE 33 IU/L (10-42); BILIRUBIN,TOTAL 1.1 mg/dL (0.2-1.0); BUN - BLOOD UREA NITROGEN 17 mg/dL (6-20); CALCIUM 9.1 mg/dL (8.5-10.3); CARBON DIOXIDE - CO2 28 mmol/L (21-32); CHLORIDE 105 mmol/L (101-111); CHOL/HDL RATIO 2.5 (<5.0); CHOLESTEROL 167 mg/dL; CREATININE 0.9 mg/dL (0.6-1.2); GFR - MDRD 81 (>89); GLUCOSE 97 mg/dL (70-100); HDL CHOLESTEROL 68 mg/dL; LDL CHOLESTEROL,CALCULATED 85 mg/dL; LDL/HDL RATIO 1.3 (<3.6); POTASSIUM 4.2 mmol/L (3.5-5.0); SODIUM 139 mmol/L (135-145); THYROID STIMULATING HORMONE 2.57 uIU/mL (0.34-5.60); TOTAL PROTEIN 7.1 g/dL (6.7-8.2); TRIGLYCERIDES 68 mg/dL; VLDL CHOLESTEROL 14 mg/dL
== END 2021-03-27 23:59 | disposition home or self-care (01) ==
LOC: LAB.WCP 09:02
PROVIDERS: ATTEND Family Medicine
DX: I48.91 Unspecified atrial fibrillation (principal); I10 Essential (primary) hypertension; R97.20 Elevated prostate specific antigen [PSA]; E04.1 Nontoxic single thyroid nodule
CPT/HCPCS: 36415; 80053; 80061; 84443; 85025; G0103; 83721; 84153

== ENCOUNTER 2023-03-11 08:33 | Outpatient (CLI) | payer MEDICARE ==
[2023-03-11 08:43] LABS: BASOPHILS % (AUTO) 0.5 %; EOSINOPHILS # (AUTO) 0.3 10^3/uL (0.0-0.7); EOSINOPHILS % (AUTO) 4.2 %; HCT - HEMATOCRIT 42.1 % (42.0-52.0); HGB - HEMOGLOBIN 13.9 g/dL (14.0-18.0); LYMPHOCYTES # (AUTO) 1.5 10^3/uL (1.5-3.5); LYMPHOCYTES % (AUTO) 20.5 %; MEAN CORPUSCULAR HEMOGLOBIN 33.7 pg (27.0-31.0); MEAN CORPUSCULAR VOLUME 102.2 fL (80.0-94.0); MEAN PLATELET VOLUME 11.1 fL (7.4-11.4); MONOCYTES # (AUTO) 0.9 10^3/uL (0.0-1.0); NEUTROPHILS # (AUTO) 4.6 10^3/uL (1.5-6.6); NEUTROPHILS % (AUTO) 62.7 %; PLT - PLATELET COUNT 147 10^3/uL (130-450); RED BLOOD COUNT 4.12 10^6/uL (4.70-6.10); RED CELL DISTRIBUTION WIDTH 13.5 % (12.0-15.0); WHITE BLOOD COUNT 7.4 x10^3/uL (4.8-10.8)
[2023-03-11 08:57] LABS: ALBUMIN 4.3 g/dL (3.2-5.5); ALBUMIN/GLOBULIN RATIO 1.5 (1.0-2.2); ALKALINE PHOSPHATASE 60 IU/L (42-121); ALT ALANINE AMINOTRANSFERASE 19 IU/L (10-60); AST ASPARTATE AMINOTRANSFERASE 23 IU/L (10-42); BILIRUBIN,TOTAL 0.9 mg/dL (0.2-1.0); BUN - BLOOD UREA NITROGEN 20 mg/dL (6-20); CALCIUM 9.6 mg/dL (8.5-10.3); CARBON DIOXIDE - CO2 30 mmol/L (21-32); CHLORIDE 104 mmol/L (101-111); CHOL/HDL RATIO 2.1 (<5.0); CHOLESTEROL 133 mg/dL; CREATININE 1.1 mg/dL (0.6-1.3); GFR - MDRD 64 (>89); GLUCOSE 94 mg/dL (74-104); HDL CHOLESTEROL 64 mg/dL; LDL CHOLESTEROL,CALCULATED 56 mg/dL; LDL/HDL RATIO 0.9 (<3.6); POTASSIUM 4.5 mmol/L (3.5-4.5); SODIUM 138 mmol/L (135-145); TOTAL PROTEIN 7.2 g/dL (6.4-8.9); TRIGLYCERIDES 63 mg/dL (48-352); VLDL CHOLESTEROL 13 mg/dL
[2023-03-11 09:13] LABS: THYROID STIMULATING HORMONE 2.77 uIU/mL (0.34-5.60)
== END 2023-03-11 08:34 | disposition home or self-care (01) ==
LOC: LAB 08:33
PROVIDERS: ATTEND Internal Medicine
DX: E78.5 Hyperlipidemia, unspecified (principal); I42.0 Dilated cardiomyopathy; E04.1 Nontoxic single thyroid nodule
CPT/HCPCS: 36415; 80053; 80061; 83721; 84443; 85025

== ENCOUNTER 2023-03-31 17:03 | Emergency (ER) | payer MEDICARE ==
--- NOTE | 2023-03-31 17:25 | ED Physician Documentation ---
History of Present Illness - Stated complaint Stated Complaint: MALE - Chief complaint Chief Complaint: General - History obtained from History obtained from: Patient - Additonal information Additional information: 82-year-old gentleman with history of TURP at [facility] about 5 years ago. A-fib with pacemaker in place and maintained on Eliquis. Starting today he had low urine output associated with pelvic pain radiating to the back and feeling of incomplete emptying of the bladder. PD PAST MEDICAL HISTORY - Past Medical History Cardiovascular: Hypertension, High cholesterol, Arrhythmia Respiratory: None Endocrine/Autoimmune: None GI: GERD, Colon polyps : None, Other HEENT: Chronic vision loss, Dental implants Psych: Depression Musculoskeletal: None Derm: None - Past Surgical History General: EGD, Appendectomy, Colonoscopy Ortho: Arthroscopic surgery /CLASSIFIED AD TAKER: Tubal ligation, Hysterectomy, Oophrectomy Cardiovascular: Pacemaker, Cardiac catheterization, Other HEENT: Tonsil/Adenoidectomy - Present Medications Home Medications: Ambulatory Orders Medication Instructions Recorded Confirmed Tamsulosin HCl [Flomax] 0.4 mg PO DAILY 12/01/17 03/31/23 Atorvastatin [Lipitor] 40 mg PO QPM #30 tablet 12/02/17 03/31/23 Apixaban [Eliquis] 5 mg PO BID 03/31/23 03/31/23 Metoprolol Succinate 50 mg PO BID 03/31/23 03/31/23 - Allergies Allergies/Adverse Reactions: Allergies Allergy/AdvReac Type Severity Reaction Status Date / Time lisinopril AdvReac Cough Verified 03/31/23 17:11 losartan potassium * AdvReac Bradycardia Verified 03/31/23 17:11 [From Cozaar] - Social History Does the pt smoke?: No Smoking Status: Never smoker - POLST Patient has POLST: No POLST Status: Full Code PD ED PE NORMAL - Vitals Vital signs reviewed: Yes - General General: Alert and oriented X 3, No acute distress - Abdomen Abdomen: Normal bowel sounds, Soft, Non tender, Other (Bedside ultrasound shows a fairly small bladder but with wall thickening and suggestion of posterior mass versus clot.) - Back Back: No CVA TTP, No spinal TTP - Derm Derm: Normal color, Warm and dry - Neuro Neuro: Alert and oriented X 3, Normal speech Results - Vitals Vitals: Vital Signs - 24 hr 08/16/23 08/16/23 17:09 20:06 Temperature 36.3 C L Heart Rate 70 58 L Respiratory 16 18 Rate Blood Pressure 167/87 H 132/77 H O2 Saturation 94 96 Oxygen O2 Source Room air - Labs Labs: Laboratory Tests 03/31/23 03/31/23 03/31/23 17:30 17:30 17:30 WBC 8.1 RBC 4.11 L Hgb 13.9 L Hct 42.4 MCV 103.2 H MCH 33.8 H MCHC 32.8 RDW 13.8 Plt Count 150 MPV 11.3 Neut # (Auto) 6.2 Lymph # (Auto) 1.0 L Carter # (Auto) 0.6 Eos # (Auto) 0.1 Baso # (Auto) 0.1 Absolute Nucleated RBC 0.00 Nucleated RBC % 0.0 Sodium 139 Potassium 4.0 Chloride 105 Carbon Dioxide 27 Anion Gap 7.0 BUN 17 Creatinine 1.0 Estimated GFR (MDRD) 72 L Glucose 117 H Calcium 9.2 Urine Color BROWN Urine Clarity CLOUDY Urine pH 6.5 Ur Specific [place] >=1.030 H Urine Protein >=300 H Urine Glucose (UA) NEGATIVE Urine Ketones TRACE Urine Occult Blood LARGE H Urine Nitrite POSITIVE H Urine Bilirubin NEGATIVE Urine Urobilinogen 1 (NORMAL) Ur Leukocyte Esterase TRACE H Urine RBC TNTC H Urine WBC 11-25 H Ur Squamous Epith Cells RARE Squamous Amorphous Sediment Rare Urine Bacteria Few Urine Yeast PRESENT Ur Microscopic Review INDICATED Urine Culture Comments INDICATED PD Medical Decision Making - ED course ED course: 82-year-old gentleman presents with hematuria. Pain at this point is mild. Work-up here demonstrates a fairly normal CBC, BMP. His urinalysis shows a lot of blood. It is positive for nitrate but with only few bacteria no white count I suspect this is color interference from the volume of blood. CT IVP done and showing obstructing 8 mm stone at the left UVJ. Again he is relatively pain- free now but was agreeable to a prepack of Percocet to go home with and he is referred to urology given the size of the stone. Departure - Departure Disposition: 01 Home, Self Care Clinical Impression: Renal colic on left side Hematuria Qualifiers: Hematuria type: unspecified type Qualified Code(s): R31.9 - Hematuria, unspecified Condition: Good Record reviewed to determine appropriate education?: Yes Instructions: ED Stone Renal W Colic Follow-Up: Brennan Kaur MD [Provider Admit Priv/Credential] - Comments: You have an obstructing stone at the left uterovesicular junction. Right by the bladder. It is 8 mm which is a fairly large stone but, again it is almost again the bladder so it may pass on its own. I do think you should follow-up with the urologist, you can follow-up with the physician you saw at [facility] a few years ago, or we do have a local urologist now and his numbers on this form. Call either 1 for the next available appointment. Return for new or worsening symptoms. Drink plenty of fluids.
[2023-03-31 17:38] LABS: BASOPHILS # (AUTO) 0.1 10^3/uL (0.0-0.1); BASOPHILS % (AUTO) 0.6 %; EOSINOPHILS # (AUTO) 0.1 10^3/uL (0.0-0.7); EOSINOPHILS % (AUTO) 1.7 %; HCT - HEMATOCRIT 42.4 % (42.0-52.0); HGB - HEMOGLOBIN 13.9 g/dL (14.0-18.0); LYMPHOCYTES % (AUTO) 12.8 %; MEAN CORPUSCULAR HEMOGLOBIN 33.8 pg (27.0-31.0); MEAN CORPUSCULAR HGB CONC 32.8 g/dL (32.0-36.0); MEAN CORPUSCULAR VOLUME 103.2 fL (80.0-94.0); MEAN PLATELET VOLUME 11.3 fL (7.4-11.4); MONOCYTES # (AUTO) 0.6 10^3/uL (0.0-1.0); MONOCYTES % (AUTO) 7.7 %; NEUTROPHILS # (AUTO) 6.2 10^3/uL (1.5-6.6); NEUTROPHILS % (AUTO) 76.8 %; PLT - PLATELET COUNT 150 10^3/uL (130-450); RED BLOOD COUNT 4.11 10^6/uL (4.70-6.10); RED CELL DISTRIBUTION WIDTH 13.8 % (12.0-15.0); WHITE BLOOD COUNT 8.1 x10^3/uL (4.8-10.8)
[2023-03-31 17:44] LABS: CALCIUM 9.2 mg/dL (8.5-10.3)
[2023-03-31 17:45] LABS: GLUCOSE, URINE (UA) NEGATIVE (NEGATIVE); KETONES,URINE (UA) TRACE mg/dL (NEGATIVE); LEUKOCYTE ESTERASE, URINE TRACE (NEGATIVE); NITRITE,URINE POSITIVE (NEGATIVE); OCCULT BLOOD,URINE LARGE (NEGATIVE); PH,URINE 6.5 PH (5.0-7.5); PROTEIN,URINE >=300 mg/dL (NEGATIVE); UROBILINOGEN,URINE 1 (NORMAL) E.U./dL (NORMAL)
[2023-03-31 17:50] LABS: AMORPHOUS SEDIMENT,UR Rare /LPF; BACTERIA,URINE Few /HPF (None Seen); BILIRUBIN,URINE NEGATIVE (NEGATIVE); CLARITY,URINE CLOUDY (CLEAR); ICTOTEST,URINE NEGATIVE; RBC,URINE TNTC /HPF (0-5); SQUAMOUS EPITHELIAL CELL,UR RARE Squamous (<= Few); YEAST,URINE PRESENT
[2023-03-31] MEDS ORDERED: iohexoL-300 100 ML VIAL IVP ONE (19:00)
--- NOTE | 2023-03-31 20:53 | CT Report ---
PROCEDURE: IVP INDICATIONS: hematuria, bladder mass? on sono CONTRAST: Omni 300 140ml TECHNIQUE: After the administration of intravenous contrast, 5 mm thick sections acquired from the diaphragms to the symphysis. 5 mm thick coronal and sagittal reformats were acquired. For radiation dose reducti on, the following was used: automated exposure control, adjustment of mA and/or kV according to nandini ent size. COMPARISON: CT IVP 12/31/2017. FINDINGS: Image quality: Diagnostic. Urinary system: There is an obstructing urinary stone at the left ureterovesicular junction measurin g 0.8 cm with attenuation values of approximately 800-900 Hounsfield units. There is associated mild to moderate left hydronephrosis with perinephric and perirenal fat stranding. There are 4 nonobstruct eb stones within the right kidney with the largest measuring up to 0.4 cm. No right hydronephrosis. Bilateral indistinct hypodensity demonstrated within the renal medulla suggestive of medullary nephro calcinosis. There are bilateral renal cysts. Right ureter is nondistended. The opacified renal system s demonstrate no suspicious mass lesions. The left renal collecting system is partially opacified due to a delayed nephrogram secondary to obstruction. No calcified bladder stones. There is partial opac ification of the urinary bladder. No discrete bladder mass identified. There is moderate enlargement of the prostate with mass effect extending into the bladder. OTHER Lung bases:There are a few small bilateral pulmonary nodules within the lung bases which appears sta ble in size compared to the prior study including a 0.5 cm subpleural nodule in the left lower lobe o n series 2 image 10. A warehouse representative nodule in the right lower lobe measures 2.4 cm in series 2 imag e 12. Linear atelectasis and scarring are also demonstrated bilaterally in the lung bases. Heart: Heart is borderline enlarged. There is a small hiatal hernia. ABDOMEN: Liver: No mass lesion. Gallbladder: Within normal limits without calcified gallstones. Biliary ducts: No biliary ductal dilatation. Pancreas: Unremarkable. Spleen: Normal in size. Adrenal Glands: No adrenal nodules. Stomach and Bowel: Stomach, small bowel loops, and colon are normal in caliber and wall thickness. W ho no evidence of appendicitis. There is colonic diverticulosis without acute diverticulitis. Peritoneum: No abnormal intraperitoneal fluid. No free air. Ventral Wall: No hernia. Abdominal Nodes: No retroperitoneal or mesenteric adenopathy by size criteria. Vessels: Aorta and inferior vena cava are normal in size. PELVIS: Pelvic Organs: Unremarkable. Pelvic Nodes: No enlarged lymph nodes. Miscellaneous: No inguinal hernias. Bones: Visualized osseous structures demonstrate no suspicious lesions. IMPRESSION: 1. Obstructing urinary stone at the left UVJ with mild to moderate left hydroureteronephrosis. 2. Partial opacification of the left renal collecting system secondary to delayed nephrogram. Opacifi ed renal systems demonstrate no suspicious masslike filling defects. 3. Partially opacified urinary bladder demonstrates no discrete suspicious mass. There is moderate en largement of the prostate with associated mass effect extending into the bladder. Reviewed by: Maxwell Oliveira MD on 03/31/2023 8:52 PM PDT Approved by: Maxwell Oliveira MD on 03/31/2023 8:52 PM PDT Station ID: [id number]
[2023-03-31] MEDS ORDERED: oxyCODONE/ACET 5/325 Prepack 4 PO STA (20:59)
[2023-03-31 21:03] VITALS: BP 131/71; O2SAT 98
== END 2023-03-31 21:13 | disposition home or self-care (01) ==
LOC: ED 17:03
DX: N20.2 Calculus of kidney with calculus of ureter (principal); R31.9 Hematuria, unspecified; I48.91 Unspecified atrial fibrillation; I10 Essential (primary) hypertension; E78.00 Pure hypercholesterolemia, unspecified; Z79.01 Long term (current) use of anticoagulants; Z79.899 Other long term (current) drug therapy; Z95.0 Presence of cardiac pacemaker
CPT/HCPCS: 36415; 74178; 80048; 81001; 85025; 87086; 99283; 99284; Q9967; 81003

== ENCOUNTER 2023-05-01 11:05 | Outpatient (CLI) | payer MEDICARE ==
--- NOTE | 2023-05-01 18:13 | Ultrasound Report ---
PROCEDURE: Retroperitoneal INDICATIONS: URETERIC STONE TECHNIQUE: Real-time scanning was performed of the retroperitoneal organs, with image documentation. COMPARISON: Correlation is made with CT, 03/31/2023 FINDINGS: Kidneys: Kidneys are normal in size. Right kidney measures 10.6 cm long; left kidney measures 12.3 cm long. Right renal cortical thickness is 0.5 cm; left renal cortical thickness is 0.7 cm. No adithya d masses or hydronephrosis. Bilateral nonobstructing stones are seen, measuring 9 mm inferiorly on the right and 5 mm superiorly on the right as well as 7 mm within the superior left kidney. At the superior pole of the left kidney, there is a 7.1 cm cyst. Bladder: Pre-void bladder volume is 93 mL. Post-void residual is 71 mL. Within the bladder, there i s a 1.2 cm stone seen on the left, which does not obstruct the left ureteral jet. On pre-void images, both ureteral jets are noted with color Doppler interrogation. (Of note, ureteral jets may not be d etectable in up to 25% of cases due to insufficient differences in specific gravity between ureteral and bladder urine). Miscellaneous: No free abdominal fluid. The prostate measures 4.1 x 4.1 x 5.1 cm. IMPRESSION: Moderate postvoid residual, 71 cc. 12 mm bladder stone, which does not cause obstruction. No hydronephrosis is seen on either side. Bilateral lower extremity renal stones are seen. 7.1 cm simple left renal cyst noted. Reviewed by: Sridhar Medel MD on 05/01/2023 5:12 PM CARRIE Approved by: Sridhar Medel MD on 05/01/2023 5:12 PM CARRIE Station ID: [id number]
== END 2023-05-01 11:06 | disposition home or self-care (01) ==
LOC: DI 11:05
PROVIDERS: ATTEND Urology
DX: N20.1 Calculus of ureter (principal); N21.0 Calculus in bladder